=== PATIENT | male | born 1945 | race Caucasian/White ===

== ENCOUNTER 2017-03-15 09:51 | Emergency (ER) | payer MEDICARE, SELFPAY | END 2017-03-15 12:08 | disposition short-term general hospital (02) | PROVIDERS: Emergency Provider Emergency Medicine; Family Provider Family Medicine; PCP Family Medicine; Visit Provider Emergency Medicine | DX: S01.01XA Laceration without foreign body of scalp, initial encounter (principal); S12.001A Unspecified nondisplaced fracture of first cervical vertebra, initial encounter for closed fracture; W01.198A Fall on same level from slipping, tripping and stumbling with subsequent striking against other object, initial encounter; Y92.019 Unspecified place in single-family (private) house as the place of occurrence of the external cause; I25.10 Atherosclerotic heart disease of native coronary artery without angina pectoris; Z79.01 Long term (current) use of anticoagulants; I10 Essential (primary) hypertension; Z79.82 Long term (current) use of aspirin; E78.5 Hyperlipidemia, unspecified; K21.9 Gastro-esophageal reflux disease without esophagitis | CPT/HCPCS: 12002; 70450; 72125 ==

== ENCOUNTER 2019-12-29 19:13 | Emergency (ER) | payer MEDICARE, SELFPAY ==
[2019-12-29] VITALS (7 sets, daily range): BP systolic 91–116; BP diastolic 51–68; PULSE 63–72; RESP 16–20; TEMP 36.4; O2SAT 93–96; BMI 32.8
--- NOTE | 2019-12-29 19:42 | XR_ITS ---
PROCEDURE: XR CHEST 2V CLINICAL HISTORY: dizzy and weakness COMPARISON: CT CTAC CTA-CHEST from 11/27/2016 CR CXR CHEST(2 VIEWS-NOT PORTABLE) from 11/27/2016 CR CXR1 CHEST-PORTABLE from 12/04/2016 CR CXR1VP XR chest portable from 08/03/2017 FINDINGS: Cardiomegaly without failure. The lungs are clear without infiltrates, suspicious nodules, or pleural effusions. Mild subpleural thickening in the left chest laterally not significantly changed. No acute bony findings. IMPRESSION: Cardiomegaly. No acute finding Dictated by: Lino Stevenson MD 12/30/2019 05:49 Lino Stevenson MD in [place] 12/30/2019 05:49
--- NOTE | 2019-12-29 19:47 | ECG_ITS ---
APPROVED REPORT Exam: Resting ECG HR:70 bpm ECG Measurements Heart Rate 70 AXES [place] 168 P 73 QRSd 70 QRS 0 QT 412 T 129 QTc 444 Conclusion Normal sinus rhythm T wave abnormality, consider lateral ischemia Abnormal ECG Electronically signed by : Diego Griffin, 01/01/2020 09:43:39
[2019-12-29 19:49] LABS: Basophils # 0.1 K/mm3 (0-0.2); Basophils % 0.8 % (0.1-2.0); Eosinophils # 0.4 K/mm3 (0.0-0.4); Eosinophils % 3.3 % (0.1-12.0); Hematocrit 43.2 % (42.0-52.0); Hemoglobin 14.4 g/dL (14.1-18.0); Lymphocytes # 2.7 K/mm3 (0.7-4.5); Lymphocytes % 21.6 % (10-50); Mean Corpuscular HGB Conc 33.3 g/dL (31.8-35.4); Mean Corpuscular Hemoglobin 30.8 pg (27.0-31.2); Mean Corpuscular Volume 92.5 fl (80-94); Monocytes # 1.4 K/mm3 (0.1-1.0); Monocytes % 11.2 % (1.7-9.3); Neutrophils % 63.1 % (37.0-80.0); Platelet Count 259 K/mm3 (142-424); Red Blood Count 4.67 M/mm3 (4.60-6.20); Red Cell Distribution Width 17.4 % (11.5-17.5); White Blood Count 12.7 K/mm3 (4.8-10.8)
[2019-12-29 19:51] LABS: Chloride 102 mmol/L (98-107); Sodium 138 mmol/L (136-145)
[2019-12-29 19:52] LABS: Potassium 3.7 mmoL/L (3.5-5.1)
[2019-12-29 19:54] LABS: Alanine Aminotransferase 32 U/L (12-78); Albumin Level 4.2 g/dl (3.5-5.0); Alkaline Phosphatase 96 U/L (38-126); Anion Gap 16.7 mEq/L (5-15); Aspartate Amino Transferase 38 U/L (17-59); Bilirubin,Direct 0.1 mg/dl (0.0-0.4); Bilirubin,Indirect 0.5 mg/dL (0.0-0.9); Bilirubin,Total 0.6 mg/dl (0.2-1.3); Bilirubin,Unconjugated 0.5 mg/dL (0.0-1.1); Blood Urea Nitrogen 25 mg/dl (9-20); Carbon Dioxide 23 mmol/L (22.0-30.0); Creatinine Clearance Estimated 37 mL/min (50-200); Estimated Glomerular Filt Rate 27 ml/min (>60); GFR (African American) 32 ML/MIN (>60); Total Protein,Serum 7.4 g/dl (6.3-8.2)
[2019-12-29 19:55] LABS: Calcium 9.1 mg/dl (8.4-10.2); Glucose 100 mg/dl (74-100)
[2019-12-29 20:00] LABS: C-Reactive Protein 5.2 mg/L (0-4)
[2019-12-29 20:08] LABS: Troponin I 0.15 ng/ml (0.00-0.034)
[2019-12-29 20:15] LABS: Coronavirus 19 IgG Antibody Negative (Negative); Coronavirus 19 IgM Antibody Negative (Negative)
[2019-12-29 20:17] LABS: Erythrocyte Sedimentation Rate 20 mm/hr (0-20)
--- NOTE | 2019-12-29 20:38 | HMH.EDDIZZ ---
ED Disposition Clinical Impression: Lightheadedness, RENETTA (acute kidney injury), Elevated troponin, Obesity (BMI 30.0-34.9) Disposition: Xfer Short-Term Hosp Condition on Discharge: Good Referrals: Diego Lange MD [Primary Care Provider] - - Critical Care Critical Care Time: No Attestation: On 12/29/19, the high probability of a clinically significant, sudden or life threatening deterioration of the following system(s) required my full and direct attention, intervention and personal management. The time I documented below is in addition to time spent performing reported procedures but includes the following listed in this critical care notation. Medical Decision Making - Medical Records Medical records reviewed: Yes: I reviewed the patient's medical records. - Aguilar Inquiry Pt receiving controlled substance: No Vital Signs: 12/29/19 19:31 12/29/19 20:20 12/29/19 20:36 Temperature 97.6 F Temperature Source Oral Pulse Rate [Right] 72 63 71 Respiratory Rate 16 20 18 Blood Pressure [Right Arm] 91/51 L 116/63 99/53 L Blood Pressure Mean [Right Arm] 64 80 68 Blood Pressure Source [Right Arm] Automatic Cuff Blood Pressure Position [Right Arm] Sitting 02 Sat by Pulse Oximetry 96 94 L 94 L Oxygen Delivery Method Room Air Room Air Room Air 12/29/19 21:55 12/29/19 22:00 Temperature Temperature Source Pulse Rate [Right] 70 65 Respiratory Rate 18 Blood Pressure [Right Arm] 94/53 L 105/63 L Blood Pressure Mean [Right Arm] 66 77 Blood Pressure Source [Right Arm] Blood Pressure Position [Right Arm] 02 Sat by Pulse Oximetry 93 L 95 Oxygen Delivery Method Room Air Room Air - Lab Data Lab results reviewed: Yes: I reviewed the patient's lab results. Lab Results 12/29/19 19:35: WBC 12.7 H, RBC 4.67, Hgb 14.4, Hct 43.2, MCV 92.5, MCH 30.8, MCHC 33.3, RDW 17.4, Plt Count 259, MPV 8.0, Neut % (Auto) 63.1, Lymph % (Auto) 21.6, [place] % (Auto) 11.2 H, Eos % (Auto) 3.3, Baso % (Auto) 0.8, Neut # (Auto) 8.0 H, Lymph # (Auto) 2.7, [place] # (Auto) 1.4 H, Eos # (Auto) 0.4, Baso # (Auto) 0.1, ESR 20 12/29/19 19:35: Sodium 138, Potassium 3.7, Chloride 102, Carbon Dioxide 23, Anion Gap 16.7 H, BUN 25 H, Creatinine 2.40 H, Estimated Creat Clear 37, Estimated GFR 27 L, Est GFR ( Amer) 32 L, Glucose 100, Calcium 9.1, Total Bilirubin 0.6, Direct Bilirubin 0.1, Conjugated Bilirubin 0.0, Indirect Bilirubin 0.5, Unconjugated Bilirubin 0.5, AST 38, ALT 32, Alkaline Phosphatase 96, Troponin I 0.15 H, C-Reactive Protein 5.2 H, Total Protein 7.4, Albumin 4.2 12/29/19 19:35: SARS-CoV-2 IgG Ab (Rapid) Negative, SARS-CoV-2 IgM Ab (Rapid) Negative Result diagrams: 12/29/19 19:35 12/29/19 19:35 Orders (Tests/Meds): ED MEDICATIONS Generic Name Dose Route Start Last Admin Trade Name Freq PRN Reason Stop Dose Admin Sodium Chloride 1,000 mls @ 999 mls/hr 12/29/19 19:45 12/29/19 19:49 Sod Chlor 0.9% 1000ml Bag IV 12/29/19 20:45 999 mls/hr .Q1H1M JUICE Administration Sodium Chloride 8 ml 12/29/19 19:42 Sodium Chloride 0.9% 10ml Vial IV 01/28/20 19:41 NEEDED PRN dilute pepcid Discontinued Medications Generic Name Dose Route Start Last Admin Trade Name Freq PRN Reason Stop Dose Admin Famotidine 20 mg 12/29/19 19:42 12/29/19 19:49 Famotidine 20mg/2ml Vial IV 12/29/19 19:43 20 mg ONCE ONE Administration Metoclopramide HCl 10 mg 12/29/19 19:42 12/29/19 19:49 Metoclopramide Hcl 10mg/2ml Vial IVP 12/29/19 19:43 10 mg ONCE ONE Administration Ondansetron HCl 4 mg 12/29/19 19:42 12/29/19 19:49 Ondansetron 4mg/2ml Vial IV 12/29/19 19:43 4 mg ONCE ONE Administration ORDERS Category Date Time Status XR chest 2V Stat Exams 12/29/19 19:42 Taken Troponin I Q3H Lab 12/29/19 22:45 Ordered Troponin I Q3H Lab 12/30/19 01:45 Ordered - Radiology Data #1 Image(s): Chest Image Reviewed: Yes I reviewed the patient's radiology image Preliminary Find
--- NOTE | 2019-12-29 20:57 | PC.NURSE ---
Speaking with [place] transfer center
--- NOTE | 2019-12-29 21:31 | PC.NURSE ---
Spoke with nba at the CT who stated it would be a half hour before they knew if they had a bed available and they would call us back then to update.
--- NOTE | 2019-12-29 22:01 | PC.NURSE ---
[facility] calling to [facility] Neal
--- NOTE | 2019-12-29 22:01 | PC.NURSE ---
speaking with [facility]
--- NOTE | 2019-12-29 22:15 | PC.NURSE ---
[facility] by [facility] Palmer
== END 2019-12-29 23:58 | disposition short-term general hospital (02) ==
PROVIDERS: Emergency Medicine; Emergency Provider Emergency Medicine; PCP Family Medicine
DX: N17.9 Acute kidney failure, unspecified (principal); R77.8 Other specified abnormalities of plasma proteins; Z01.84 Encounter for antibody response examination; I95.9 Hypotension, unspecified; E66.9 Obesity, unspecified; Z68.30 Body mass index [BMI] 30.0-30.9, adult; Z79.899 Other long term (current) drug therapy; Z20.828 Contact with and (suspected) exposure to other viral communicable diseases
CPT/HCPCS: 71046; 80048; 80076; 84484; 85025; 85651; 86140; 86328; 93005; 96365; 96375; 99284; J2405

== ENCOUNTER 2020-08-09 13:27 | Emergency (ER) | payer MEDICARE, SELFPAY ==
[2020-08-09] VITALS (10 sets, daily range): BP systolic 94–150; BP diastolic 42–66; PULSE 95–107; RESP 16–22; TEMP 36.6–36.7; O2SAT 94–98; BMI 38.0
--- NOTE | 2020-08-09 13:31 | ECG_ITS ---
APPROVED REPORT Exam: Resting ECG HR:105 bpm ECG Measurements Heart Rate 105 AXES [place] 164 P 72 QRSd 72 QRS 16 QT 322 T 66 QTc 425 Conclusion Sinus tachycardia Otherwise normal ECG Electronically signed by : Diego Griffin, 08/11/2020 07:29:23
--- NOTE | 2020-08-09 13:35 | HMH.EDGENADL ---
ED Disposition Clinical Impression: Chest pain Qualifiers: Chest pain type: unspecified Qualified Code(s): R07.9 - Chest pain, unspecified Disposition: Xfer Short-Term Hosp Condition on Discharge: Good Referrals: Diego Lange MD [Primary Care Provider] - Forms: Transfer Record - ED - Critical Care Critical Care Time: No Attestation: On 08/09/20, the high probability of a clinically significant, sudden or life threatening deterioration of the following system(s) required my full and direct attention, intervention and personal management. The time I documented below is in addition to time spent performing reported procedures but includes the following listed in this critical care notation. Medical Decision Making - Aguilar Inquiry Pt receiving controlled substance: No Vital Signs: 08/09/20 13:28 08/09/20 14:01 08/09/20 14:33 Temperature 98.0 F Temperature Source Oral Pulse Rate 102 H 96 H Pulse Rate [Right Radial] 107 H Respiratory Rate 22 21 16 Blood Pressure 106/57 L 128/42 L Blood Pressure [Right Arm] 150/66 H Blood Pressure Mean 73 75 Blood Pressure Mean [Right Arm] 94 02 Sat by Pulse Oximetry 98 94 L 95 Oxygen Delivery Method Room Air 08/09/20 15:29 08/09/20 16:00 08/09/20 16:30 Temperature Temperature Source Pulse Rate 98 H 100 H 100 H Pulse Rate [Right Radial] Respiratory Rate 21 18 18 Blood Pressure 113/64 100/43 L 94/59 L Blood Pressure [Right Arm] Blood Pressure Mean 69 65 72 Blood Pressure Mean [Right Arm] 02 Sat by Pulse Oximetry 94 L 95 96 Oxygen Delivery Method 08/09/20 17:00 08/09/20 17:30 08/09/20 18:01 Temperature Temperature Source Pulse Rate 95 H 97 H 96 H Pulse Rate [Right Radial] Respiratory Rate 21 19 21 Blood Pressure 100/64 L 113/64 97/61 L Blood Pressure [Right Arm] Blood Pressure Mean 68 79 73 Blood Pressure Mean [Right Arm] 02 Sat by Pulse Oximetry 96 98 94 L Oxygen Delivery Method 08/09/20 19:04 Temperature 98 F Temperature Source Pulse Rate 96 H Pulse Rate [Right Radial] Respiratory Rate 20 Blood Pressure 97/61 L Blood Pressure [Right Arm] Blood Pressure Mean Blood Pressure Mean [Right Arm] 02 Sat by Pulse Oximetry Oxygen Delivery Method Room Air - Lab Data Lab Results 08/09/20 13:47: WBC 11.2 H, RBC 4.30 L, Hgb 14.0 L, Hct 41.8 L, MCV 97.1 H, MCH 32.5 H, MCHC 33.4, RDW 15.9, Plt Count 266, MPV 7.5, Neut % (Auto) 83.7 H, Lymph % (Auto) 12.1, [place] % (Auto) 3.4, Eos % (Auto) 0.5, Baso % (Auto) 0.3, Neut # (Auto) 9.4 H, Lymph # (Auto) 1.4, [place] # (Auto) 0.4, Eos # (Auto) 0.1, Baso # (Auto) 0.0 08/09/20 13:47: Sodium 136, Potassium 4.9, Chloride 107, Carbon Dioxide 18 L, Anion Gap 15.9 H, BUN 33 H, Creatinine 1.40 H, Estimated Creat Clear 75, Estimated GFR 50 L, Est GFR ( Amer) 60, Glucose 176 H, Calcium 9.0, Total Bilirubin 0.7, AST 41, ALT 47, Alkaline Phosphatase 74, Troponin I 0.01, Total Protein 7.2, Albumin 4.3, Globulin 2.9, Albumin/Globulin Ratio 1.5 08/09/20 16:26: Troponin I 0.03 Result diagrams: 08/09/20 13:47 08/09/20 13:47 Orders (Tests/Meds): ED MEDICATIONS Discontinued Medications Generic Name Dose Route Start Last Admin Trade Name Freq PRN Reason Stop Dose Admin Aspirin 324 mg 08/09/20 13:53 08/09/20 14:00 Aspirin 81mg Chewable Tablet PO 08/09/20 13:54 324 mg ONCE ONE Administration Belladonna Alkaloids 60 ml 08/09/20 13:54 08/09/20 14:00 Gi Cocktail 60ml Udc PO 08/09/20 13:55 60 ml ONCE ONE Administration Famotidine 20 mg 08/09/20 13:53 08/09/20 14:00 Famotidine 20mg/2ml Vial IV 08/09/20 13:54 20 mg ONCE ONE Administration Sodium Chloride 8 ml 08/09/20 13:53 Sodium Chloride 0.9% 10ml Vial IV 09/08/20 13:52 NEEDED PRN dilute pepcid - ECG Data Tracing #1 EKG interpreted by Shane Lopez MD: Rhythm: sinus tachycardia Rate: 105 [place]: normal Ectopy: none Conduction: normal ST Segm
--- NOTE | 2020-08-09 13:53 | XR_ITS ---
PROCEDURE: XR CHEST PORTABLE CLINICAL HISTORY: chest pain COMPARISON: CT CTAC CTA-CHEST from 11/27/2016 CR CXR1 CHEST-PORTABLE from 12/04/2016 CR CXR1VP XR chest portable from 08/03/2017 CR XR CHEST 2V from 12/29/2019 FINDINGS: Low lung volumes with vascular crowding and pericardial fat pads noted in the lung bases. No lobar consolidation or collapse apparent with no significant change. The lungs are clear without infiltrates, suspicious nodules, or pleural effusions. No acute bony abnormalities. IMPRESSION: No acute findings. Dictated by: Lino Stevenson MD 08/09/2020 14:51 Lino Stevenson MD in [place] 08/09/2020 14:51
[2020-08-09 14:01] LABS: Basophils % 0.3 % (0.1-2.0); Eosinophils # 0.1 K/mm3 (0.0-0.4); Eosinophils % 0.5 % (0.1-12.0); Hematocrit 41.8 % (42.0-52.0); Lymphocytes # 1.4 K/mm3 (0.7-4.5); Lymphocytes % 12.1 % (10-50); Mean Corpuscular HGB Conc 33.4 g/dL (31.8-35.4); Mean Corpuscular Hemoglobin 32.5 pg (27.0-31.2); Mean Corpuscular Volume 97.1 fl (80-94); Mean Platelet Volume 7.5 fl (7.4-10.4); Monocytes # 0.4 K/mm3 (0.1-1.0); Monocytes % 3.4 % (1.7-9.3); Neutrophils # 9.4 K/mm3 (1.8-7.8); Neutrophils % 83.7 % (37.0-80.0); Platelet Count 266 K/mm3 (142-424); Red Cell Distribution Width 15.9 % (11.5-17.5); White Blood Count 11.2 K/mm3 (4.8-10.8)
--- NOTE | 2020-08-09 14:01 | PC.NURSE ---
Rad at bedside.
[2020-08-09 14:05] LABS: Chloride 107 mmol/L (98-107); Potassium 4.9 mmoL/L (3.5-5.1); Sodium 136 mmol/L (136-145)
[2020-08-09 14:07] LABS: Alanine Aminotransferase 47 U/L (12-78); Alkaline Phosphatase 74 U/L (38-126); Anion Gap 15.9 mEq/L (5-15); Aspartate Amino Transferase 41 U/L (17-59); Bilirubin,Total 0.7 mg/dl (0.2-1.3); Blood Urea Nitrogen 33 mg/dl (9-20); Carbon Dioxide 18 mmol/L (22.0-30.0); Creatinine Clearance Estimated 75 mL/min (50-200); Estimated Glomerular Filt Rate 50 ml/min (>60); GFR (African American) 60 ML/MIN (>60)
[2020-08-09 14:08] LABS: Albumin Level 4.3 g/dl (3.5-5.0); Albumin/Globulin Ratio 1.5 (1.1-1.8); Globulin 2.9 g/dL (1.3-3.2); Glucose 176 mg/dl (74-100); Total Protein,Serum 7.2 g/dl (6.3-8.2)
[2020-08-09 14:22] LABS: Troponin I 0.01 ng/ml (0.00-0.034)
--- NOTE | 2020-08-09 16:27 | PC.NURSE ---
repeat troponin done at this time
[2020-08-09 17:03] LABS: Troponin I 0.03 ng/ml (0.00-0.034)
--- NOTE | 2020-08-09 17:15 | PC.NURSE ---
[facility] facer per MD request.
--- NOTE | 2020-08-09 17:22 | PC.NURSE ---
[facility] is [facility] once they get ahold of cardiology. They did advise their cardiology can't transfer in, but would be willing to do a conference. Our MD would then need to conference with their MD to see about admission. I advised them we just want to talk to someone in cardiology first as pt is [facility] pt and request transfer to the [place].
--- NOTE | 2020-08-09 17:28 | PC.NURSE ---
DAXA CORTEZ speaking with Dr Patsy MD with [facility] at [place].
--- NOTE | 2020-08-09 18:23 | PC.NURSE ---
Paola notified of transfer to [place]. Another patient also to transfer to , called supervisor inspection room and she stated to go on and [facility].
--- NOTE | 2020-08-09 18:50 | PC.NURSE ---
Pt care turned over to EMS at this time.
== END 2020-08-09 19:06 | disposition short-term general hospital (02) ==
PROVIDERS: Emergency Provider Emergency Medicine; PCP Family Medicine
DX: R07.9 Chest pain, unspecified (principal); I25.2 Old myocardial infarction; E78.5 Hyperlipidemia, unspecified; I10 Essential (primary) hypertension; Z79.899 Other long term (current) drug therapy; Z87.891 Personal history of nicotine dependence
CPT/HCPCS: 71045; 80053; 84484; 85025; 93005; 96374; 99283

== ENCOUNTER 2020-08-22 15:11 | Emergency (ER) | payer MEDICARE, SELFPAY ==
[2020-08-22] VITALS (13 sets, daily range): BP systolic 90–144; BP diastolic 46–84; PULSE 72–105; RESP 12–22; TEMP 36.6–36.8; O2SAT 93–98; BMI 31.9
--- NOTE | 2020-08-22 15:06 | ECG_ITS ---
APPROVED REPORT Exam: Resting ECG HR:94 bpm ECG Measurements Heart Rate 94 AXES [place] 166 P 72 QRSd 82 QRS 16 QT 362 T 91 QTc 452 Conclusion Normal sinus rhythm Nonspecific ST and T wave abnormality Abnormal ECG Electronically signed by : Diego Griffin, 08/25/2020 11:05:26
--- NOTE | 2020-08-22 15:20 | XR_ITS ---
PROCEDURE: XR CHEST PORTABLE CLINICAL HISTORY: chest pain COMPARISON: CT CTAC CTA-CHEST from 11/27/2016 CR CXR1VP XR chest portable from 08/03/2017 CR XR CHEST 2V from 12/29/2019 CR XR CHEST PORTABLE from 08/09/2020 FINDINGS: Mild cardiomegaly without failure The lung bases are under penetrated with increased density in both lung bases which may be due soft tissue attenuation. Upper lobes are clear. No acute bony abnormalities. IMPRESSION: No acute findings. Dictated by: Lino Stevenson MD 08/22/2020 16:55 Lino Stevenson MD in [place] 08/22/2020 16:55
--- NOTE | 2020-08-22 15:21 | HMH.EDGENADL ---
ED Disposition Clinical Impression: Angina pectoris Leukocytosis Qualifiers: Leukocytosis type: unspecified Qualified Code(s): D72.829 - Elevated white blood cell count, unspecified Disposition: Home Health Service Condition on Discharge: Good Referrals: Diego Lange MD [Primary Care Provider] - Forms: Transfer Record - ED - Critical Care Critical Care Time: No Attestation: On , the high probability of a clinically significant, sudden or life threatening deterioration of the following system(s) required my full and direct attention, intervention and personal management. The time I documented below is in addition to time spent performing reported procedures but includes the following listed in this critical care notation. Medical Decision Making - Medical Records Medical records reviewed: Yes: I reviewed the patient's medical records. MR Comment: Reviewed ER record from 08/09/2020. Seen by me in this emergency department for similar burning in his chest that started after he had a nasopharyngeal scope procedure at the [facility]. His troponin increased from 0.01-0.03 in the emergency department and he was transferred to the [facility]. - Aguilar Inquiry Pt receiving controlled substance: No Vital Signs: 08/22/20 15:11 08/22/20 15:35 Temperature 98 F Temperature Source Oral Pulse Rate 95 H Pulse Rate [Radial] 94 H Respiratory Rate 20 18 Blood Pressure 90/46 L Blood Pressure [Right Arm] 144/60 H Blood Pressure Mean [Right Arm] 88 Blood Pressure Source [Right Arm] Manual Cuff/ Palpation Blood Pressure Position Sitting Blood Pressure Position [Right Arm] Sitting 02 Sat by Pulse Oximetry 98 98 Oxygen Delivery Method Room Air Room Air - Lab Data Lab Results 08/22/20 15:19: WBC 20.9 H*, RBC 4.22 L, Hgb 13.8 L, Hct 40.7 L, MCV 96.3 H, MCH 32.7 H, MCHC 34.0, RDW 16.3, Plt Count 230, MPV 8.4, Neut % (Auto) 89.5 H, Lymph % (Auto) 6.1 L, [place] % (Auto) 4.0, Eos % (Auto) 0.0 L, Baso % (Auto) 0.4, Neut # (Auto) 18.7 H, Lymph # (Auto) 1.3, [place] # (Auto) 0.8, Eos # (Auto) 0.0, Baso # (Auto) 0.1, Total Counted 100, Neutrophils % (Manual) 85 H, Band Neutrophils % 1.0, Lymphocytes % (Manual) 13, Monocytes % (Manual) 1 L, Platelet Estimate Normal, RBC Morphology Normal, Anisocytosis 1+ 08/22/20 15:19: Sodium 130 L, Potassium 4.2, Chloride 99, Carbon Dioxide 22, Anion Gap 13.2, BUN 43 H, Creatinine 1.20, Estimated Creat Clear 72, Estimated GFR 59, Est GFR ( Amer) 72, Glucose 176 H, Calcium 8.5, Troponin I 0.03 08/22/20 16:02: Lactate 1.8 Result diagrams: 08/22/20 15:19 08/22/20 15:19 Orders (Tests/Meds): ED MEDICATIONS Discontinued Medications Generic Name Dose Route Start Last Admin Trade Name Freq PRN Reason Stop Dose Admin Aspirin 324 mg 08/22/20 15:24 08/22/20 15:26 Aspirin 81mg Chewable Tablet PO 08/22/20 15:25 324 mg ONCE ONE Administration Nitroglycerin 0.4 mg 08/22/20 15:25 08/22/20 15:24 Nitroglycerin 0.4mg Sl Tablet SL 08/22/20 15:26 0.4 mg ONCE ONE Administration ORDERS Category Date Time Status Full Resp Panel w/COVID ([facility]) Routine Lab 08/22/20 16:45 Received Troponin I Q3H Lab 08/22/20 18:30 Ordered Troponin I Q3H Lab 08/22/20 21:30 Ordered Urinalysis and Microscopic Stat Lab 08/22/20 16:00 Ordered Blood Culture Stat Micro 08/22/20 15:40 Received - Radiology Data #1 Image(s): Chest Image Reviewed: Yes I reviewed the patient's radiology image, Yes I have reviewed radiologist's interpretation Preliminary Findings: Normal/NAD PROCEDURE: XR CHEST PORTABLE CLINICAL HISTORY: chest pain COMPARISON: CT CTAC CTA-CHEST from 11/27/2016 CR CXR1VP XR chest portable from 08/03/2017 CR XR CHEST 2V from 12/29/2019 CR XR CHEST PORTABLE from 08/09/2020 FINDINGS: Mild cardiomegaly without failure The lung bases are under penetrated with increased density in both lung bases which may be due soft tissue attenuation. Upper l
[2020-08-22 15:31] LABS: Basophils # 0.1 K/mm3 (0-0.2); Basophils % 0.4 % (0.1-2.0); Hematocrit 40.7 % (42.0-52.0); Hemoglobin 13.8 g/dL (14.1-18.0); Lymphocytes # 1.3 K/mm3 (0.7-4.5); Lymphocytes % 6.1 % (10-50); Mean Corpuscular Hemoglobin 32.7 pg (27.0-31.2); Mean Corpuscular Volume 96.3 fl (80-94); Mean Platelet Volume 8.4 fl (7.4-10.4); Monocytes # 0.8 K/mm3 (0.1-1.0); Neutrophils # 18.7 K/mm3 (1.8-7.8); Neutrophils % 89.5 % (37.0-80.0); Platelet Count 230 K/mm3 (142-424); Red Blood Count 4.22 M/mm3 (4.60-6.20); Red Cell Distribution Width 16.3 % (11.5-17.5); White Blood Count 20.9 K/mm3 (4.8-10.8)
[2020-08-22 15:35] LABS: MANUAL DIFFERENTIAL MANUAL DIFFERENTIAL (MANUAL DIFF)
[2020-08-22 15:43] LABS: Anion Gap 13.2 mEq/L (5-15); Blood Urea Nitrogen 43 mg/dl (9-20); Calcium 8.5 mg/dl (8.4-10.2); Carbon Dioxide 22 mmol/L (22.0-30.0); Chloride 99 mmol/L (98-107); Creatinine Clearance Estimated 72 mL/min (50-200); Estimated Glomerular Filt Rate 59 ml/min (>60); GFR (African American) 72 ML/MIN (>60); Glucose 176 mg/dl (74-100); Potassium 4.2 mmoL/L (3.5-5.1); Sodium 130 mmol/L (136-145)
[2020-08-22 15:55] LABS: Troponin I 0.03 ng/ml (0.00-0.034)
[2020-08-22 16:01] LABS: Anisocytosis 1+; Lymphocytes % 13 % (10-50); Monocytes % 1 % (2-9); Neutrophils % 85 % (42-76); Platelet Estimate Normal; RBC Morphology Normal; Total Cells Counted 100
--- NOTE | 2020-08-22 16:06 | PC.NURSE ---
Unable to collect urine at this time, pt states he can urinate at this time
--- NOTE | 2020-08-22 16:19 | PC.NURSE ---
placed call to [facility] JIANG there advises she will call back after speaking with hospitalist and checking room availability
[2020-08-22 16:22] LABS: Lactic Acid 1.8 mmol/L (0.7-2.1)
--- NOTE | 2020-08-22 16:48 | PC.NURSE ---
Dr Lopez spoke with the [place].
[2020-08-22 16:54] LABS: Adenovirus,PCR Not Detected (NotDetected); Bordetella Pertussis Not Detected (NotDetected); Chlamydophila Pneumoniae, PCR Not Detected (NotDetected); Coronavirus 19, PCR Not Detected (NotDetected); Coronavirus 229E Not Detected (NotDetected); Coronavirus NL63 Not Detected (NotDetected); Coronavirus OC43 Not Detected (NotDetected); Coronovirus HKU1,PCR Not Detected (NotDetected); Human Metapneumovirus Not Detected (NotDetected); Influenza A, PCR Not Detected (NotDetected); Influenza AH1, 2009 Not Detected (NotDetected); Influenza AH1, PCR Not Detected (NotDetected); Influenza AH3,PCR Not Detected (NotDetected); Influenza B, PCR Not Detected (NotDetected); Mycoplasma Pneumoniae, PCR Not Detected (NotDetected); Parainfluenza 1, PCR Not Detected (NotDetected); Parainfluenza 2, PCR Not Detected (NotDetected); Parainfluenza 3, PCR Not Detected (NotDetected); Parainfluenza 4, PCR Not Detected (NotDetected); Respiratory Syncytial Virus Not Detected (NotDetected); Rhinovirus/Enterovirus Not Detected (NotDetected)
--- NOTE | 2020-08-22 19:04 | PC.WOUNDNOTE ---
PT AND FAMILY UPDATED ON PLAN OF CARE
[2020-08-22 19:08] LABS: Troponin I 0.03 ng/ml (0.00-0.034)
--- NOTE | 2020-08-22 21:37 | PC.NURSE ---
Pt requesting to wash up given cleaning supplies and wash rags
--- NOTE | 2020-08-22 22:42 | PC.NURSE ---
[facility] at [facility] RN requested to have this RN call back in 10 min.
== END 2020-08-22 22:53 | disposition short-term general hospital (02) ==
PROVIDERS: Emergency Provider Emergency Medicine; PCP Family Medicine
DX: I20.8 Other forms of angina pectoris (principal); D72.829 Elevated white blood cell count, unspecified
CPT/HCPCS: 71045; 80048; 83605; 84484; 85007; 85025; 87040; 87581; 87633; 87798; 93005; 99284

== ENCOUNTER 2020-09-11 04:11 | Emergency (ER) | payer MEDICARE, SELFPAY ==
[2020-09-11 04:17] VITALS: BP 154/119; PULSE 82; RESP 16; TEMP 36.6; O2SAT 96; BMI 39.5
--- NOTE | 2020-09-11 04:17 | ECG_ITS ---
APPROVED REPORT Exam: Resting ECG HR:71 bpm ECG Measurements Heart Rate 71 AXES [place] 168 P 74 QRSd 70 QRS 20 QT 438 T 75 QTc 475 Conclusion Normal sinus rhythm Normal ECG Electronically signed by : Diego Griffin, 09/11/2020 21:17:52
--- NOTE | 2020-09-11 04:24 | XR_ITS ---
PROCEDURE INFORMATION: Exam: XR Chest Exam date and time: 09/11/2020 4:24 AM Age: 75 years old Clinical indication: Shortness of breath; Patient HX: Short of breath; Additional info: SOA TECHNIQUE: Imaging protocol: XR of the chest. Views: 1 view. COMPARISON: CR XR CHEST PORTABLE 08/22/2020 3:46 PM FINDINGS: Lungs: See Heart/Mediastinum finding. Pleural spaces: There is no pleural effusion or pneumothorax. Heart/Mediastinum: The moderate cardiomegaly and mild perihilar infiltrates are stable since the prior exam. Bones/joints: The bones are demineralized but grossly intact. IMPRESSION: No significant change in the moderate cardiomegaly or mild perihilar infiltrates.
[2020-09-11 04:32] LABS: Basophils # 0.1 K/mm3 (0-0.2); Basophils % 0.7 % (0.1-2.0); Eosinophils # 0.2 K/mm3 (0.0-0.4); Eosinophils % 2.3 % (0.1-12.0); Hematocrit 34.5 % (42.0-52.0); Hemoglobin 11.3 g/dL (14.1-18.0); Lymphocytes # 1.7 K/mm3 (0.7-4.5); Lymphocytes % 19.6 % (10-50); Mean Corpuscular HGB Conc 32.8 g/dL (31.8-35.4); Mean Corpuscular Hemoglobin 32.6 pg (27.0-31.2); Mean Corpuscular Volume 99.6 fl (80-94); Mean Platelet Volume 7.5 fl (7.4-10.4); Monocytes # 0.7 K/mm3 (0.1-1.0); Monocytes % 8.1 % (1.7-9.3); Neutrophils % 69.4 % (37.0-80.0); Platelet Count 340 K/mm3 (142-424); Red Blood Count 3.46 M/mm3 (4.60-6.20); Red Cell Distribution Width 17.5 % (11.5-17.5); White Blood Count 8.6 K/mm3 (4.8-10.8)
[2020-09-11 04:37] LABS: Anion Gap 11.5 mEq/L (5-15); Blood Urea Nitrogen 15 mg/dl (9-20); Carbon Dioxide 27 mmol/L (22.0-30.0); Chloride 103 mmol/L (98-107); Creatinine Clearance Estimated 100 mL/min (50-200); Potassium 3.5 mmoL/L (3.5-5.1); Sodium 138 mmol/L (136-145)
[2020-09-11 04:38] LABS: Calcium 8.4 mg/dl (8.4-10.2); Estimated Glomerular Filt Rate 66 ml/min (>60); GFR (African American) 79 ML/MIN (>60); Glucose 97 mg/dl (74-100)
[2020-09-11 04:50] LABS: NT Pro Brain Natriuretic Pep. 425 pg/mL (0-125)
--- NOTE | 2020-09-11 04:57 | PC.NURSE ---
swabbed for covid and sent to lab. son-in-law remains in room
[2020-09-11 05:00] LABS: Coronavirus 19, PCR Not Detected (NotDetected); Influenza A, PCR Not Detected (NotDetected); Influenza B, PCR Not Detected (NotDetected)
[2020-09-11 05:01] VITALS: BP 146/70; RESP 16
[2020-09-11 05:03] LABS: Troponin I < 0.01 ng/ml (0.00-0.034)
--- NOTE | 2020-09-11 05:20 | HMH.EDSOB ---
ED Disposition Clinical Impression: Acute exacerbation of chronic obstructive airways disease Disposition: Home, Self-Care Condition on Discharge: Good Instructions: DI for Shortness of Breath Additional Instructions: use meds and see pcp for follow up Referrals: Diego Lange MD [Primary Care Provider] - - Critical Care Critical Care Time: No Attestation: On 09/11/20, the high probability of a clinically significant, sudden or life threatening deterioration of the following system(s) required my full and direct attention, intervention and personal management. The time I documented below is in addition to time spent performing reported procedures but includes the following listed in this critical care notation. Medical Decision Making - Medical Records Medical records reviewed: Yes: I reviewed the patient's medical records. - Aguilar Inquiry Pt receiving controlled substance: No Vital Signs: 09/11/20 04:17 09/11/20 05:01 Temperature 97.8 F Temperature Source Oral Pulse Rate [Right Brachial] 82 Respiratory Rate 16 16 Blood Pressure 146/70 H Blood Pressure [Right Arm] 154/119 H Blood Pressure Mean 95 Blood Pressure Mean [Right Arm] 130 Blood Pressure Source [Right Arm] Automatic Cuff Blood Pressure Position [Right Arm] Sitting 02 Sat by Pulse Oximetry 96 Oxygen Delivery Method Room Air - Lab Data Lab results reviewed: Yes: I reviewed the patient's lab results. Lab Results 09/11/20 04:20: WBC 8.6, RBC 3.46 L, Hgb 11.3 L, Hct 34.5 L, MCV 99.6 H, MCH 32.6 H, MCHC 32.8, RDW 17.5, Plt Count 340, MPV 7.5, Neut % (Auto) 69.4, Lymph % (Auto) 19.6, [place] % (Auto) 8.1, Eos % (Auto) 2.3, Baso % (Auto) 0.7, Neut # (Auto) 6.0, Lymph # (Auto) 1.7, [place] # (Auto) 0.7, Eos # (Auto) 0.2, Baso # (Auto) 0.1 09/11/20 04:20: Sodium 138, Potassium 3.5, Chloride 103, Carbon Dioxide 27, Anion Gap 11.5, BUN 15, Creatinine 1.10, Estimated Creat Clear 100, Estimated GFR 66, Est GFR ( Amer) 79, Glucose 97, Calcium 8.4, Troponin I < 0.01, NT-Pro-B Natriuret Pep 425 H 09/11/20 04:20: Total Bilirubin 0.8, Direct Bilirubin 0.4, Conjugated Bilirubin 0.0, Indirect Bilirubin 0.4, Unconjugated Bilirubin 0.4, AST 34, ALT 29, Alkaline Phosphatase 68, Total Protein 5.9 L, Albumin 3.6 09/11/20 04:54: SARS-CoV-2 (PCR) Not detected, Influenza A Untype (PCR) Not detected, Influenza Type B (PCR) Not detected 09/11/20 05:12: Specimen Source Right radial, O2 % Room air, ABG pH 7.47 H, ABG pCO2 37.0, ABG pO2 67.9 L, ABG HCO3 26.4 H, ABG Total CO2 27.6 H, ABG O2 Saturation 94, ABG Base Excess 2.8 H, Lino Test Y 09/11/20 05:20: Lactate 1.0 Result diagrams: 09/11/20 04:20 09/11/20 04:20 Orders (Tests/Meds): ED MEDICATIONS Generic Name Dose Route Start Last Admin Trade Name Freq PRN Reason Stop Dose Admin Albuterol Sulfate 2 puffs 09/11/20 12:00 09/11/20 06:36 Albuterol-Hfa 90mcg/Puff Inhaler 8gm 10/11/20 11:59 2 puffs Q6RT JUICE Administration Discontinued Medications Generic Name Dose Route Start Last Admin Trade Name Freq PRN Reason Stop Dose Admin Albuterol Sulfate 2.5 mg 09/11/20 06:26 Albuterol 0.083% 2.5 Mg/3 Ml [facility] 10/11/20 06:25 Q6 PRN Shortness Of Breath Or Wheezing Albuterol/Ipratropium 3 ml 09/11/20 06:23 09/11/20 06:34 Ipratropium/Albuterol 3 Ml [facility] 09/11/20 06:24 3 ml ONCE ONE Administration Furosemide 40 mg 09/11/20 06:26 09/11/20 06:28 Furosemide 40mg/4ml Vial IV 09/11/20 06:27 40 mg ONCE ONE Administration Iopamidol 70 ml 09/11/20 05:59 09/11/20 06:00 Iopamidol-370 (76%);100ml Bottle IV 09/11/20 06:00 70 ml ONCE ONE Administration Methylprednisolone Sodium Succinate 125 mg 09/11/20 06:23 09/11/20 06:24 Methylprednisolone Sod Succ 125mg Vial IV 09/11/20 06:24 125 mg ONCE ONE Administration Miscellaneous 1 unit 09/11/20 06:34 09/11/20 06:36 Aerochamber/Optihaler MC 09/11/20 06:35 1 unit ONCE ONE Administration S
--- NOTE | 2020-09-11 05:23 | CT_ITS ---
PROCEDURE INFORMATION: Exam: CTA Chest With Contrast Exam date and time: 09/11/2020 5:23 AM Age: 75 years old Clinical indication: Shortness of breath and other: Chest tightness; Prior surgery; Surgery date: <1 month; Surgery type: Cardiac stents placed first of August 2020. PT has also had a RT endarterectomy in the past HX; Patient HX: SOB, congestion, chest tightness, HX of cardiac stents; Additional info: SOA, chest tightness TECHNIQUE: Imaging protocol: Computed tomographic angiography of the chest with contrast. 3D rendering (Not supervised by radiologist): MIP and/or 3D reconstructed images were created by the technologist. Radiation optimization: All CT scans at this facility use at least one of these dose optimization techniques: automated exposure control; mA and/or kV adjustment per patient size (includes targeted exams where dose is matched to clinical indication); or iterative reconstruction. Contrast material: ISOVUE 370; Contrast volume: 70 ml; Contrast route: INTRAVENOUS (IV); COMPARISON: [facility] CTA-CHEST 11/27/2016 10:28 AM FINDINGS: Pulmonary arteries: There is no convincing evidence of a significant pulmonary embolus. Aorta: There is no aortic aneurysm or dissection. Lungs: There is mild dependent atelectasis in both lungs. No lobar consolidation is seen. Pleural spaces: Unremarkable. No pneumothorax. No pleural effusion. Heart: There are prominent atherosclerotic calcifications within the coronary arteries. The cardiac chambers are grossly normal in size and there is no pericardial effusion or overt failure. Mediastinal space: There is mucous debris within the trachea and right mainstem bronchus. Lymph nodes: There are nonspecific mildly prominent lymph nodes in the mediastinum. There are a few calcified lymph nodes consistent with remote granulomatous disease. Liver: Mild hepatic steatosis. Bones/joints: No acute osseous abnormality Soft tissues: Unremarkable. IMPRESSION: 1. No convincing evidence of a pulmonary embolus. 2. Mild mediastinal lymphadenopathy of unknown etiology. 3. Prominent atherosclerotic calcifications within the coronary arteries. 4. Mild hepatic steatosis.
[2020-09-11 05:28] LABS: Alanine Aminotransferase 29 U/L (12-78); Albumin Level 3.6 g/dl (3.5-5.0); Alkaline Phosphatase 68 U/L (38-126); Aspartate Amino Transferase 34 U/L (17-59); Bilirubin,Direct 0.4 mg/dl (0.0-0.4); Bilirubin,Indirect 0.4 mg/dL (0.0-0.9); Bilirubin,Total 0.8 mg/dl (0.2-1.3); Bilirubin,Unconjugated 0.4 mg/dL (0.0-1.1); Total Protein,Serum 5.9 g/dl (6.3-8.2)
[2020-09-11 05:28] LABS: ABG Base Excess 2.8 mmol/L (-2.4-2.3); ABG HCO3 26.4 mmhg (22.0-26.0); ABG Oxygen Saturation 94 % (90-100); ABG PH 7.47 mmol/L (7.35-7.45); ABG PO2 67.9 mmhg (80-100); ABG TCO2 27.6 mmhg (23-27)
[2020-09-11 05:29] LABS: Oxygen Room Air %
[2020-09-11 05:30] LABS: Allen's Test Y; Source Right Radial
--- NOTE | 2020-09-11 05:46 | PC.NURSE ---
pt up to ct via [facility].
--- NOTE | 2020-09-11 06:08 | PC.NURSE ---
return from rad at this time
[2020-09-11 06:57] VITALS: BP 160/70; PULSE 69; RESP 18; TEMP 36.9; O2SAT 98
== END 2020-09-11 07:07 | disposition home or self-care (01) ==
PROVIDERS: Emergency Provider Emergency Medicine; PCP Family Medicine
DX: J44.1 Chronic obstructive pulmonary disease with (acute) exacerbation (principal); Z79.899 Other long term (current) drug therapy
CPT/HCPCS: 71045; 71275; 80048; 80076; 82803; 83605; 83880; 84484; 85025; 87040; 93005; 96374; 96375; 99283; Q9967; U0003

== ENCOUNTER 2020-10-05 15:54 | Emergency (ER) | payer OTHER, MEDICARE, SELFPAY ==
[2020-10-05 15:55] VITALS: BP 155/72; PULSE 85; RESP 22; TEMP 36.9; O2SAT 97; BMI 34.4
--- NOTE | 2020-10-05 16:01 | ECG_ITS ---
APPROVED REPORT Exam: Resting ECG HR:92 bpm ECG Measurements Heart Rate 92 AXES [place] 162 P 72 QRSd 74 QRS 20 QT 386 T 85 QTc 477 Conclusion Normal sinus rhythm Nonspecific ST and T wave abnormality Prolonged QT Abnormal ECG Electronically signed by : Diego Griffin, 10/06/2020 15:18:01
[2020-10-05 16:04] VITALS: BP 180/95; PULSE 87; RESP 18; O2SAT 98
--- NOTE | 2020-10-05 16:04 | XR_ITS ---
PROCEDURE INFORMATION: Exam: XR Chest Exam date and time: 10/05/2020 4:04 PM Age: 75 years old Clinical indication: Patient HX: Cough and SOA TECHNIQUE: Imaging protocol: XR of the chest. Views: 1 view. COMPARISON: CR XR CHEST PORTABLE 09/11/2020 4:28 AM FINDINGS: Lungs: Atelectatic and/or early infiltrative changes noted within both lung bases. Pleural spaces: There is no evidence of pneumothorax. There are no pleural effusions present. Heart/Mediastinum: The heart demonstrates moderate diffuse enlargement. Bones/joints: The thoracic spine demonstrates mild degenerative changes at multiple levels. IMPRESSION: 1. The heart demonstrates moderate diffuse enlargement. 2. Atelectatic and/or early infiltrative changes noted within both lung bases.
[2020-10-05 16:06] VITALS: BP 155/79; PULSE 84; RESP 21; O2SAT 96
[2020-10-05 16:19] LABS: Basophils % 0.2 % (0.1-2.0); Eosinophils # 0.1 K/mm3 (0.0-0.4); Eosinophils % 1.6 % (0.1-12.0); Hematocrit 29.6 % (42.0-52.0); Hemoglobin 9.8 g/dL (14.1-18.0); Lymphocytes # 1.2 K/mm3 (0.7-4.5); Lymphocytes % 13.7 % (10-50); Mean Corpuscular HGB Conc 33.2 g/dL (31.8-35.4); Mean Corpuscular Hemoglobin 32.2 pg (27.0-31.2); Mean Platelet Volume 7.2 fl (7.4-10.4); Monocytes # 0.5 K/mm3 (0.1-1.0); Monocytes % 5.5 % (1.7-9.3); Neutrophils # 6.7 K/mm3 (1.8-7.8); Neutrophils % 78.9 % (37.0-80.0); Platelet Count 255 K/mm3 (142-424); Red Blood Count 3.05 M/mm3 (4.60-6.20); Red Cell Distribution Width 17.3 % (11.5-17.5); White Blood Count 8.5 K/mm3 (4.8-10.8)
--- NOTE | 2020-10-05 16:19 | PC.NURSE ---
RT notified of ABG for patient
--- NOTE | 2020-10-05 16:20 | HMH.EDSOB ---
ED Disposition Clinical Impression: Physical deconditioning, Pleural effusion due to CHF (congestive heart failure), Chronic anemia Disposition: Home, Self-Care Condition on Discharge: Good Instructions: DI for Pleural Effusion Prescriptions: Bumetanide 0.5 mg PO DAILY #5 tab Prescription Printed Referrals: Diego Lange MD [Primary Care Provider] - - Critical Care Critical Care Time: No Attestation: On 10/05/20, the high probability of a clinically significant, sudden or life threatening deterioration of the following system(s) required my full and direct attention, intervention and personal management. The time I documented below is in addition to time spent performing reported procedures but includes the following listed in this critical care notation. Medical Decision Making - Medical Records Medical records reviewed: Yes: I reviewed the patient's medical records. - Aguilar Inquiry Pt receiving controlled substance: No Vital Signs: 10/05/20 15:55 10/05/20 16:04 10/05/20 16:06 Temperature 98.4 F Temperature Source Oral Pulse Rate 87 84 Pulse Rate [Right] 85 Respiratory Rate 22 18 21 Blood Pressure 180/95 H 155/79 H Blood Pressure [Right Arm] 155/72 H Blood Pressure Mean 106 104 Blood Pressure Mean [Right Arm] 99 02 Sat by Pulse Oximetry 97 98 96 Oxygen Delivery Method Room Air - Lab Data Lab Results 10/05/20 16:04: Urine Color Yellow, Urine Appearance Clear, Urine pH 5.5, Ur Specific [place] 1.020, Urine Protein Negative, Urine Glucose (UA) Negative, Urine Ketones Negative, Urine Blood Negative, Urine Nitrate Negative, Urine Bilirubin Negative, Urine Urobilinogen 0.2, Ur Leukocyte Esterase Negative, Urine RBC None, Urine WBC None, Ur Squamous Epith Cells Occasional, Urine Bacteria None 10/05/20 16:05: Specimen Source Right radial, O2 % room air, ABG pH 7.51 H, ABG pCO2 32.9 L, ABG pO2 74.1 L, ABG HCO3 25.7, ABG Total CO2 26.7, ABG O2 Saturation 96, ABG Base Excess 2.6 H, Lino Test Acceptable 10/05/20 16:10: WBC 8.5, RBC 3.05 L, Hgb 9.8 L, Hct 29.6 L, MCV 97.0 H, MCH 32.2 H, MCHC 33.2, RDW 17.3, Plt Count 255, MPV 7.2 L, Neut % (Auto) 78.9, Lymph % (Auto) 13.7, [place] % (Auto) 5.5, Eos % (Auto) 1.6, Baso % (Auto) 0.2, Neut # (Auto) 6.7, Lymph # (Auto) 1.2, [place] # (Auto) 0.5, Eos # (Auto) 0.1, Baso # (Auto) 0.0 10/05/20 16:10: PT 10.7, INR 1.04, APTT 18.1 L 10/05/20 16:10: Sodium 141, Potassium 3.0 L, Chloride 106, Carbon Dioxide 30, Anion Gap 8.0, BUN 16, Creatinine 0.90, Estimated Creat Clear 93, Estimated GFR 83, Est GFR ( Amer) 100, Glucose 126 H, Calcium 8.2 L, Total Bilirubin 0.8, AST 28, ALT 35, Alkaline Phosphatase 67, Troponin I 0.03, NT-Pro-B Natriuret Pep 329 H, Total Protein 6.1 L, Albumin 3.6, Globulin 2.5, Albumin/Globulin Ratio 1.4, Lipase 244, TSH 16.30 H Result diagrams: 10/05/20 16:10 10/05/20 16:10 Orders (Tests/Meds): ED MEDICATIONS Discontinued Medications Generic Name Dose Route Start Last Admin Trade Name Shaunq PRN Reason Stop Dose Admin Bumetanide 1 mg 10/05/20 18:03 Bumetanide 1mg/4ml Vial IV 10/05/20 18:04 ONCE ONE Iopamidol 100 ml 10/05/20 17:26 10/05/20 17:29 Iopamidol-370 (76%);100ml Bottle IV 10/05/20 17:27 100 ml ONCE ONE Administration Sodium Chloride 50 ml 10/05/20 17:26 10/05/20 17:28 0.9 % Sodium Chloride 50 Ml Vial IV 10/05/20 17:27 40 ml ONCE ONE Administration Sodium Chloride 10 ml 10/05/20 17:26 10/05/20 17:28 Sodium Chloride 0.9% 10ml Syr (Rad Only) IV 10/05/20 17:27 10 ml ONCE ONE Administration ORDERS Category Date Time Status Rapid PCR Covid and Flu A/B Stat Lab 10/05/20 16:05 Ordered Troponin I Q3H Lab 10/05/20 19:15 Ordered Troponin I Q3H Lab 10/05/20 22:15 Ordered - Radiology Data #1 Image(s): Chest Image Reviewed: Yes I reviewed the patient's radiology results, Yes I reviewed the patient's radiology image, Yes I have reviewed radiologist's interpretation
[2020-10-05 16:21] LABS: Chloride 106 mmol/L (98-107); Sodium 141 mmol/L (136-145)
[2020-10-05 16:23] LABS: Blood Urea Nitrogen 16 mg/dl (9-20); Creatinine Clearance Estimated 93 mL/min (50-200); Estimated Glomerular Filt Rate 83 ml/min (>60); GFR (African American) 100 ML/MIN (>60)
[2020-10-05 16:24] LABS: Alanine Aminotransferase 35 U/L (12-78); Albumin Level 3.6 g/dl (3.5-5.0); Albumin/Globulin Ratio 1.4 (1.1-1.8); Alkaline Phosphatase 67 U/L (38-126); Aspartate Amino Transferase 28 U/L (17-59); Bilirubin,Total 0.8 mg/dl (0.2-1.3); Calcium 8.2 mg/dl (8.4-10.2); Carbon Dioxide 30 mmol/L (22.0-30.0); Globulin 2.5 g/dL (1.3-3.2); Glucose 126 mg/dl (74-100); Lipase 244 U/L (23-300); Total Protein,Serum 6.1 g/dl (6.3-8.2)
[2020-10-05 16:34] LABS: NT Pro Brain Natriuretic Pep. 329 pg/mL (0-125)
[2020-10-05 16:35] LABS: ABG Base Excess 2.6 mmol/L (-2.4-2.3); ABG HCO3 25.7 mmhg (22.0-26.0); ABG Oxygen Saturation 96 % (90-100); ABG PCO2 32.9 mmhg (35.0-45.0); ABG PH 7.51 mmol/L (7.35-7.45); ABG PO2 74.1 mmhg (80-100); ABG TCO2 26.7 mmhg (23-27)
[2020-10-05 16:36] LABS: Allen's Test Acceptable; Oxygen room air %; Source Right Radial
[2020-10-05 16:38] LABS: Troponin I 0.03 ng/ml (0.00-0.034)
[2020-10-05 16:43] LABS: Microscopic, Urine URINE MICROSCOPIC (MICROSCOPIC)
[2020-10-05 16:45] LABS: Appearance,Urine CLEAR (Clear); Bilirubin,Urine Negative (Negative); Blood, Urine Negative (Negative); Color,Urine YELLOW (Yellow); Glucose,Urine (UA) Negative (Negative); Ketones,Urine Negative (Negative); Leukocyte Esterase,Urine Negative (Negative); Nitrate,Urine Negative (Negative); PH,Urine 5.5 (5.0-8.5); Protein,Urine Negative (Negative); Urobilinogen,Urine 0.2 EU/dl (0.2)
[2020-10-05 16:55] LABS: Squamous Epithelial Cell,Urine Occasional #/hpf (0-5)
--- NOTE | 2020-10-05 16:55 | CT_ITS ---
PROCEDURE INFORMATION: Exam: CTA Chest With Contrast Exam date and time: 10/05/2020 4:55 PM Age: 75 years old Clinical indication: Shortness of breath; Patient HX: SOA , R/O pe; Additional info: Short of breath TECHNIQUE: Imaging protocol: Computed tomographic angiography of the chest with contrast. 3D rendering (Not supervised by radiologist): MIP and/or 3D reconstructed images were created by the technologist. Radiation optimization: All CT scans at this facility use at least one of these dose optimization techniques: automated exposure control; mA and/or kV adjustment per patient size (includes targeted exams where dose is matched to clinical indication); or iterative reconstruction. Contrast material: ISOVUE 370; Contrast volume: 100 ml; Contrast route: INTRAVENOUS (IV); COMPARISON: CT ANGIO CHEST PE PROTOCOL 09/11/2020 5:48 AM FINDINGS: Pulmonary arteries: No evidence of pulmonary embolism. Aorta: No evidence of aortic dissection. The vasculature demonstrates diffuse mild atherosclerotic calcification. Lungs: Atelectatic changes noted within both lung bases. Pleural spaces: Small bilateral pleural effusions. There is no evidence of pneumothorax. Apical pleural thickening noted bilaterally. Heart: There is mild atherosclerotic calcification of the coronary arteries. The heart demonstrates mild diffuse enlargement. Lymph nodes: There is no evidence of mediastinal or hilar lymphadenopathy. Bones/joints: Unremarkable. No acute fracture. Soft tissues: Unremarkable. IMPRESSION: 1. No evidence of pulmonary embolism. 2. No evidence of aortic dissection. 3. The heart demonstrates mild diffuse enlargement. 4. Atelectatic changes noted within both lung bases. 5. Small bilateral pleural effusions.
--- NOTE | 2020-10-05 17:12 | PC.NURSE ---
Pt to CT
[2020-10-05 17:23] LABS: INR 1.04 (0.9-1.1); Prothrombin Time 10.7 seconds (9.2-12.1)
[2020-10-05 17:24] LABS: Activated Partial Thrombo Time 18.1 seconds (22.5-28.5)
[2020-10-05 18:32] VITALS: BP 150/79; PULSE 78; RESP 18; TEMP 36.9; O2SAT 97
== END 2020-10-05 18:33 | disposition home or self-care (01) ==
PROVIDERS: Emergency Provider Emergency Medicine; PCP Family Medicine
DX: J90 Pleural effusion, not elsewhere classified (principal); I50.43 Acute on chronic combined systolic (congestive) and diastolic (congestive) heart failure; D64.9 Anemia, unspecified
CPT/HCPCS: 71045; 71275; 80053; 81001; 82803; 83690; 83880; 84443; 84484; 85025; 85610; 85730; 93005; 96374; 99284; Q9967

== ENCOUNTER → 2020-10-18 14:06 | Outpatient (CLI) | payer MEDICARE, SELFPAY ==
--- NOTE | 2020-10-18 14:14 | XR_ITS ---
PROCEDURE: XR CHEST 2V CLINICAL HISTORY: SOB, EDEMA UNSPECIFIED,CHEST PAIN,CAD COMPARISON: CR XR CHEST PORTABLE from 08/22/2020 CR XR CHEST PORTABLE from 09/11/2020 CR XR CHEST PORTABLE from 10/05/[address] ANGIO CHEST PE PROTOCOL from 10/05/2020 FINDINGS: There is cardiomegaly without failure. Mild right basilar atelectasis has shown some improvement. Upper lobes are clear. Coronary artery calcifications and/or stents noted. No effusions or infiltrates. No acute bony abnormalities. IMPRESSION: Cardiomegaly with mild right basilar atelectasis which has shown Dictated by: Lino Stevenson MD 10/18/2020 15:50 Lino Stevenson MD in [facility] 10/18/2020 15:50
[2020-10-18 16:17] LABS: Chloride 97 mmol/L (98-107); Sodium 140 mmol/L (136-145)
[2020-10-18 16:20] LABS: Alanine Aminotransferase 24 U/L (12-78); Albumin Level 4.4 g/dl (3.5-5.0); Albumin/Globulin Ratio 1.6 (1.1-1.8); Alkaline Phosphatase 99 U/L (38-126); Aspartate Amino Transferase 32 U/L (17-59); Blood Urea Nitrogen 9 mg/dl (9-20); Calcium 8.5 mg/dl (8.4-10.2); Carbon Dioxide 29 mmol/L (22.0-30.0); Estimated Glomerular Filt Rate 66 ml/min (>60); GFR (African American) 79 ML/MIN (>60); Globulin 2.8 g/dL (1.3-3.2); Glucose 113 mg/dl (74-100); Magnesium 1.4 mg/dl (1.6-2.3); Total Protein,Serum 7.2 g/dl (6.3-8.2)
[2020-10-18 16:30] LABS: NT Pro Brain Natriuretic Pep. 184 pg/mL (0-125)
[2020-10-18 16:33] LABS: Troponin I 0.01 ng/ml (0.00-0.034)
[2020-10-18 17:12] LABS: Anion Gap 16.7 mEq/L (5-15); Potassium 2.7 mmoL/L (3.5-5.1)
== END ==
PROVIDERS: PCP Family Medicine; Visit Provider Nurse Practitioner Family
DX: R07.9 Chest pain, unspecified (principal); R60.9 Edema, unspecified; R00.0 Tachycardia, unspecified; I25.10 Atherosclerotic heart disease of native coronary artery without angina pectoris; R06.09 Other forms of dyspnea; R94.31 Abnormal electrocardiogram [ECG] [EKG]
CPT/HCPCS: 36415; 71046; 80053; 83735; 83880; 84484

== ENCOUNTER 2020-11-19 09:00 | Emergency (ER) | payer MEDICARE, SELFPAY ==
[2020-11-19] VITALS (7 sets, daily range): BP systolic 163–200; BP diastolic 81–93; PULSE 70–82; RESP 15–20; TEMP 36.7–36.8; O2SAT 90–97; BMI 34.0
--- NOTE | 2020-11-19 09:00 | ECG_ITS ---
APPROVED REPORT Exam: Resting ECG HR:75 bpm ECG Measurements Heart Rate 75 AXES IN 158 P 59 QRSd 82 QRS 20 QT 472 T 48 QTc 527 Conclusion Sinus rhythm with sinus arrhythmia with occasional premature ventricular complexes Prolonged QT Abnormal ECG Electronically signed by : Diego Griffin MD 11/19/2020 20:37:51
--- NOTE | 2020-11-19 09:09 | HMH.EDSOB ---
ED Disposition Clinical Impression: Hypokalemia, Acute exacerbation of chronic obstructive airways disease Disposition: Home, Self-Care Condition on Discharge: Fair Instructions: DI for Chronic Obstructive Pulmonary Disease Additional Instructions: Your potassium level today was low. Please follow-up with your primary care doctor in the next 2 to 3 days to have your potassium level checked again. Return to the emergency department if you feel worse in any way. Referrals: Provider,Referral, [Primary Care Provider] - 3 days - Critical Care Critical Care Time: No Attestation: On 11/19/20, the high probability of a clinically significant, sudden or life threatening deterioration of the following system(s) required my full and direct attention, intervention and personal management. The time I documented below is in addition to time spent performing reported procedures but includes the following listed in this critical care notation. Medical Decision Making - Medical Records Medical records reviewed: Yes: I reviewed the patient's medical records. - Aguilar Inquiry Pt receiving controlled substance: No Vital Signs: 11/19/20 09:03 11/19/20 09:30 11/19/20 10:00 Temperature 98.3 F Temperature Source Oral Pulse Rate 70 71 Pulse Rate [Right Radial] 73 Respiratory Rate 15 18 17 Blood Pressure 170/82 H 189/81 H Blood Pressure [Right Arm] 200/93 H Blood Pressure Mean 111 Blood Pressure Mean [Right Arm] 128 Blood Pressure Source [Right Arm] Automatic Cuff Blood Pressure Position [Right Arm] Sitting 02 Sat by Pulse Oximetry 94 L 90 L 93 L Oxygen Delivery Method Room Air Nasal Cannula Oxygen Flow Rate (LPM) 2 11/19/20 10:30 11/19/20 11:00 11/19/20 11:36 Temperature Temperature Source Pulse Rate 71 74 82 Pulse Rate [Right Radial] Respiratory Rate 16 19 18 Blood Pressure 185/93 H 185/81 H 163/91 H Blood Pressure [Right Arm] Blood Pressure Mean 115 Blood Pressure Mean [Right Arm] Blood Pressure Source [Right Arm] Blood Pressure Position [Right Arm] 02 Sat by Pulse Oximetry 93 L 91 L 96 Oxygen Delivery Method Nasal Cannula Oxygen Flow Rate (LPM) 2 - Lab Data Lab Results 11/19/20 09:05: WBC 9.8, RBC 3.97 L, Hgb 11.2 L, Hct 37.1 L, MCV 93.3, MCH 28.2, MCHC 30.3 L, RDW 16.7, Plt Count 501 H, MPV 8.1, Neut % (Auto) 74.6, Lymph % (Auto) 14.2, [place] % (Auto) 6.2, Eos % (Auto) 4.0, Baso % (Auto) 1.0, Neut # (Auto) 7.3, Lymph # (Auto) 1.4, [place] # (Auto) 0.6, Eos # (Auto) 0.4, Baso # (Auto) 0.1 11/19/20 09:05: Sodium 141, Potassium 2.6 L*, Chloride 101, Carbon Dioxide 30, Anion Gap 12.6, BUN 9, Creatinine 0.70, Estimated Creat Clear 92, Estimated GFR 111, Est GFR ( Amer) 134, Glucose 108 H, Calcium 8.2 L, Total Bilirubin 0.8, AST 35, ALT 17, Alkaline Phosphatase 73, Troponin I 0.01, NT-Pro-B Natriuret Pep 1140 H, Total Protein 6.7, Albumin 3.5, Globulin 3.2, Albumin/Globulin Ratio 1.1 11/19/20 09:05: SARS-CoV-2 (PCR) Not detected, Influenza A Untype (PCR) Not detected, Influenza Type B (PCR) Not detected Result diagrams: 11/19/20 09:05 11/19/20 09:05 Orders (Tests/Meds): ED MEDICATIONS Discontinued Medications Generic Name Dose Route Start Last Admin Trade Name Freq PRN Reason Stop Dose Admin Furosemide 40 mg 11/19/20 10:02 11/19/20 10:45 Furosemide 40mg/4ml Vial IV 11/19/20 10:03 40 mg ONCE ONE Administration Potassium Chloride 30 meq 11/19/20 09:36 11/19/20 09:40 Potassium Chloride 10meq Tablet.Er PO 11/19/20 09:37 30 meq ONCE ONE Administration ORDERS Category Date Time Status Troponin I Q3H Lab 11/19/20 12:15 Ordered - Radiology Data #1 Image(s): Chest Image Reviewed: Yes I reviewed the patient's radiology results, Yes I have reviewed radiologist's interpretation - ECG Data Tracing #1 EGD was performed at [facility] 1 AM. It shows a normal sinus rhythm with a ventricular rate of 75 bpm. There are occasi
--- NOTE | 2020-11-19 09:13 | XR_ITS ---
PROCEDURE INFORMATION: Exam: XR Chest Exam date and time: 11/19/2020 9:13 AM Age: 75 years old Clinical indication: Shortness of breath; Patient HX: Cough, SOB TECHNIQUE: Imaging protocol: XR of the chest. Views: 1 view. COMPARISON: CR XR CHEST 2V 10/18/2020 2:17 PM FINDINGS: Lungs: COPD and interstitial prominence. Pleural spaces: No pleural effusion. Heart/Mediastinum: Cardiomegaly and prominent epicardial fat. Bones/joints: Mild degenerative change. Soft tissues: Poorly defined density overlying the right lung base, suggesting prominent epicardial fat. Correlation with PA and lateral chest radiographs can be performed for confirmation if clinically indicated. IMPRESSION: 1. COPD and interstitial prominence. 2. Poorly defined density overlying the right lung base, suggesting prominent epicardial fat. Correlation with PA and lateral chest radiographs can be performed for confirmation if clinically indicated.
[2020-11-19 09:20] LABS: Coronavirus 19, PCR Not Detected (NotDetected); Influenza A, PCR Not Detected (NotDetected); Influenza B, PCR Not Detected (NotDetected)
[2020-11-19 09:22] LABS: Basophils # 0.1 K/mm3 (0-0.2); Eosinophils # 0.4 K/mm3 (0.0-0.4); Hematocrit 37.1 % (42.0-52.0); Hemoglobin 11.2 g/dL (14.1-18.0); Lymphocytes # 1.4 K/mm3 (0.7-4.5); Lymphocytes % 14.2 % (10-50); Mean Corpuscular HGB Conc 30.3 g/dL (31.8-35.4); Mean Corpuscular Hemoglobin 28.2 pg (27.0-31.2); Mean Corpuscular Volume 93.3 fl (80-94); Mean Platelet Volume 8.1 fl (7.4-10.4); Monocytes # 0.6 K/mm3 (0.1-1.0); Monocytes % 6.2 % (1.7-9.3); Neutrophils # 7.3 K/mm3 (1.8-7.8); Neutrophils % 74.6 % (37.0-80.0); Platelet Count 501 K/mm3 (142-424); Red Blood Count 3.97 M/mm3 (4.60-6.20); Red Cell Distribution Width 16.7 % (11.5-17.5); White Blood Count 9.8 K/mm3 (4.8-10.8)
[2020-11-19 09:28] LABS: Alanine Aminotransferase 17 U/L (12-78); Albumin Level 3.5 g/dl (3.5-5.0); Albumin/Globulin Ratio 1.1 (1.1-1.8); Alkaline Phosphatase 73 U/L (38-126); Anion Gap 12.6 mEq/L (5-15); Aspartate Amino Transferase 35 U/L (17-59); Bilirubin,Total 0.8 mg/dl (0.2-1.3); Blood Urea Nitrogen 9 mg/dl (9-20); Calcium 8.2 mg/dl (8.4-10.2); Carbon Dioxide 30 mmol/L (22.0-30.0); Chloride 101 mmol/L (98-107); Creatinine Clearance Estimated 92 mL/min (50-200); Estimated Glomerular Filt Rate 111 ml/min (>60); GFR (African American) 134 ML/MIN (>60); Globulin 3.2 g/dL (1.3-3.2); Glucose 108 mg/dl (74-100); Sodium 141 mmol/L (136-145); Total Protein,Serum 6.7 g/dl (6.3-8.2)
[2020-11-19 09:35] LABS: Potassium 2.6 mmoL/L (3.5-5.1)
[2020-11-19 09:39] LABS: NT Pro Brain Natriuretic Pep. 1140 pg/mL (0-125)
[2020-11-19 09:41] LABS: Troponin I 0.01 ng/ml (0.00-0.034)
== END 2020-11-19 12:07 | disposition home or self-care (01) ==
PROVIDERS: Emergency Provider Emergency Medicine
DX: J44.1 Chronic obstructive pulmonary disease with (acute) exacerbation (principal); Z20.822 Contact with and (suspected) exposure to COVID-19; E87.6 Hypokalemia; Z79.899 Other long term (current) drug therapy
CPT/HCPCS: 71045; 80053; 83880; 84484; 85025; 93005; 96374; 99283; U0003

== ENCOUNTER 2020-11-30 09:59 | Emergency (ER) | payer MEDICARE, SELFPAY ==
[2020-11-30] VITALS (7 sets, daily range): BP systolic 164–179; BP diastolic 69–86; PULSE 66–84; RESP 18–22; TEMP 36.4; O2SAT 94–96; BMI 34.4
--- NOTE | 2020-11-30 10:12 | ECG_ITS ---
APPROVED REPORT Exam: Resting ECG HR:72 bpm ECG Measurements Heart Rate 72 AXES [place] 180 P 66 QRSd 76 QRS 17 QT 468 T 61 QTc 512 Conclusion Normal sinus rhythm Prolonged QT Abnormal ECG Electronically signed by : Diego Griffin MD 11/30/2020 16:42:11
--- NOTE | 2020-11-30 10:13 | XR_ITS ---
PROCEDURE: XR CHEST PORTABLE CLINICAL HISTORY: cough COMPARISON: CR XR CHEST PORTABLE from 10/05/[address] ANGIO CHEST PE PROTOCOL from 10/05/2020 CR XR CHEST 2V from 10/18/2020 CR XR CHEST PORTABLE from 11/19/2020 FINDINGS: There is mild cardiomegaly without failure. Lung bases are under penetrated. Prominent pericardial fat pad on the right. The lungs are clear without infiltrates, suspicious nodules, or pleural effusions. No acute bony abnormalities. IMPRESSION: Cardiomegaly otherwise negative Dictated by: Lino Stevenson MD 11/30/2020 11:21 Lino Stevenson MD in [facility] 11/30/2020 11:21
[2020-11-30 10:27] LABS: Basophils # 0.1 K/mm3 (0-0.2); Basophils % 0.8 % (0.1-2.0); Eosinophils # 0.4 K/mm3 (0.0-0.4); Eosinophils % 4.4 % (0.1-12.0); Hematocrit 38.6 % (42.0-52.0); Hemoglobin 11.9 g/dL (14.1-18.0); Lymphocytes # 1.2 K/mm3 (0.7-4.5); Lymphocytes % 14.9 % (10-50); Mean Corpuscular HGB Conc 30.8 g/dL (31.8-35.4); Mean Corpuscular Hemoglobin 28.6 pg (27.0-31.2); Mean Corpuscular Volume 92.7 fl (80-94); Mean Platelet Volume 7.4 fl (7.4-10.4); Monocytes # 0.5 K/mm3 (0.1-1.0); Monocytes % 6.1 % (1.7-9.3); Neutrophils % 73.9 % (37.0-80.0); Platelet Count 410 K/mm3 (142-424); Red Blood Count 4.16 M/mm3 (4.60-6.20); Red Cell Distribution Width 16.2 % (11.5-17.5); White Blood Count 8.1 K/mm3 (4.8-10.8)
--- NOTE | 2020-11-30 10:27 | PC.NURSE ---
rad at for portable cxr
--- NOTE | 2020-11-30 10:27 | HMH.EDSOB ---
ED Disposition Clinical Impression: COPD exacerbation Disposition: Home, Self-Care Condition on Discharge: Good Instructions: DI for Chronic Obstructive Pulmonary Disease Prescriptions: Albuterol Sulfate [Albuterol Sulfate Hfa] 2 puff IH Q4HP PRN #1 each PRN Reason: Wheezing Prescription Printed methylPREDNISolone [Medrol 4mg tab] 4 mg PO DIRECTED #21 tab Prescription Printed Referrals: Diego Lange MD [Primary Care Provider] - - Critical Care Critical Care Time: No Attestation: On , the high probability of a clinically significant, sudden or life threatening deterioration of the following system(s) required my full and direct attention, intervention and personal management. The time I documented below is in addition to time spent performing reported procedures but includes the following listed in this critical care notation. Medical Decision Making - Medical Records Medical records reviewed: Yes: I reviewed the patient's medical records. - Aguilar Inquiry Pt receiving controlled substance: No Vital Signs: 11/30/20 10:00 11/30/20 10:30 11/30/20 11:00 Temperature 97.6 F Temperature Source Oral Pulse Rate 71 66 Pulse Rate [Right Radial] 67 Respiratory Rate 22 Blood Pressure 174/78 H 174/78 H Blood Pressure [Right Arm] 173/86 H Blood Pressure Mean Blood Pressure Mean [Right Arm] 115 Blood Pressure Source [Right Arm] Automatic Cuff Blood Pressure Position [Right Arm] Sitting 02 Sat by Pulse Oximetry 96 96 94 L Oxygen Delivery Method Room Air 11/30/20 11:31 11/30/20 11:40 Temperature Temperature Source Pulse Rate 66 78 Pulse Rate [Right Radial] Respiratory Rate 18 Blood Pressure 164/69 H Blood Pressure [Right Arm] Blood Pressure Mean 100 Blood Pressure Mean [Right Arm] Blood Pressure Source [Right Arm] Blood Pressure Position [Right Arm] 02 Sat by Pulse Oximetry 94 L Oxygen Delivery Method - Lab Data Lab Results 11/30/20 10:17: SARS-CoV-2 (PCR) Not detected, Influenza A Untype (PCR) Not detected, Influenza Type B (PCR) Not detected 11/30/20 10:18: WBC 8.1, RBC 4.16 L, Hgb 11.9 L, Hct 38.6 L, MCV 92.7, MCH 28.6, MCHC 30.8 L, RDW 16.2, Plt Count 410, MPV 7.4, Neut % (Auto) 73.9, Lymph % (Auto) 14.9, [place] % (Auto) 6.1, Eos % (Auto) 4.4, Baso % (Auto) 0.8, Neut # (Auto) 6.0, Lymph # (Auto) 1.2, [place] # (Auto) 0.5, Eos # (Auto) 0.4, Baso # (Auto) 0.1 11/30/20 10:18: PT 11.4, INR 0.96, APTT 26.5 11/30/20 10:18: Sodium 141, Potassium 3.3 L, Chloride 106, Carbon Dioxide 26, Anion Gap 12.3, BUN 7 L, Creatinine 0.70, Estimated Creat Clear 93, Estimated GFR 111, Est GFR ( Amer) 134, Glucose 102 H, Calcium 8.7, Total Bilirubin 0.6, AST 33, ALT 17, Alkaline Phosphatase 93, Troponin I < 0.01, NT-Pro-B Natriuret Pep 535 H, Total Protein 7.3, Albumin 3.9, Globulin 3.4 H, Albumin/Globulin Ratio 1.1, TSH 0.52 Result diagrams: 11/30/20 10:18 11/30/20 10:18 Orders (Tests/Meds): ED MEDICATIONS Discontinued Medications Generic Name Dose Route Start Last Admin Trade Name Freq PRN Reason Stop Dose Admin Albuterol/Ipratropium 3 ml 11/30/20 10:13 11/30/20 11:38 Ipratropium/Albuterol 3 Ml Neb IH 11/30/20 10:14 3 ml ONCE ONE Administration Aspirin 325 mg 11/30/20 10:13 11/30/20 10:44 Aspirin 325mg Tablet PO 11/30/20 10:14 325 mg ONCE ONE Administration Dexamethasone Sodium Phosphate 10 mg 11/30/20 10:13 11/30/20 10:44 Dexamethasone 4mg/Ml 5ml Mdv IV 11/30/20 10:14 10 mg ONCE ONE Administration ORDERS Category Date Time Status Troponin I Q3H Lab 11/30/20 13:15 Ordered Troponin I Q3H Lab 11/30/20 16:15 Ordered - Radiology Data #1 Image(s): Chest Image Reviewed: Yes I reviewed the patient's radiology results, Yes I reviewed the patient's radiology image, Yes I have reviewed radiologist's interpretation IMPRESSION: Cardiomegaly otherwise negative - ECG Data Tracing #1 Normal olimpia
[2020-11-30 10:31] LABS: Chloride 106 mmol/L (98-107); Potassium 3.3 mmoL/L (3.5-5.1); Sodium 141 mmol/L (136-145)
[2020-11-30 10:34] LABS: Alanine Aminotransferase 17 U/L (12-78); Albumin Level 3.9 g/dl (3.5-5.0); Albumin/Globulin Ratio 1.1 (1.1-1.8); Alkaline Phosphatase 93 U/L (38-126); Anion Gap 12.3 mEq/L (5-15); Aspartate Amino Transferase 33 U/L (17-59); Bilirubin,Total 0.6 mg/dl (0.2-1.3); Blood Urea Nitrogen 7 mg/dl (9-20); Carbon Dioxide 26 mmol/L (22.0-30.0); Creatinine Clearance Estimated 93 mL/min (50-200); Estimated Glomerular Filt Rate 111 ml/min (>60); GFR (African American) 134 ML/MIN (>60); Globulin 3.4 g/dL (1.3-3.2); Total Protein,Serum 7.3 g/dl (6.3-8.2)
[2020-11-30 10:35] LABS: Calcium 8.7 mg/dl (8.4-10.2); Glucose 102 mg/dl (74-100)
[2020-11-30 10:37] LABS: Activated Partial Thrombo Time 26.5 seconds (22.8-30.6); Prothrombin Time 11.4 seconds (10.1-12.5)
[2020-11-30 10:41] LABS: INR 0.96 (0.9-1.1)
[2020-11-30 10:45] LABS: NT Pro Brain Natriuretic Pep. 535 pg/mL (0-125)
[2020-11-30 10:52] LABS: Troponin I < 0.01 ng/ml (0.00-0.034)
[2020-11-30 10:54] LABS: Coronavirus 19, PCR Not Detected (NotDetected); Influenza A, PCR Not Detected (NotDetected); Influenza B, PCR Not Detected (NotDetected)
[2020-11-30 11:06] LABS: Thyroid Stimulating Hormone 0.52 uIU/mL (0.465-4.68)
--- NOTE | 2020-11-30 11:12 | PC.NURSE ---
Respiratory called about a deoneb for pet.
--- NOTE | 2020-11-30 11:13 | PC.NURSE ---
rt called for neb tx.
--- NOTE | 2020-11-30 11:41 | PC.NURSE ---
RT at bedside
== END 2020-11-30 12:26 | disposition home or self-care (01) ==
PROVIDERS: Emergency Provider Emergency Medicine; PCP Family Medicine
DX: J44.1 Chronic obstructive pulmonary disease with (acute) exacerbation (principal); Z20.822 Contact with and (suspected) exposure to COVID-19; Z87.891 Personal history of nicotine dependence
CPT/HCPCS: 71045; 80053; 83880; 84443; 84484; 85025; 85610; 85730; 93005; 96374; 99283; C9803; U0003; U0005

== ENCOUNTER 2020-12-18 00:14 | Emergency (ER) | payer MEDICARE, SELFPAY ==
[2020-12-18] VITALS (12 sets, daily range): BP systolic 101–149; BP diastolic 44–79; PULSE 98–108; RESP 17–24; TEMP 36.6–36.8; O2SAT 90–96; BMI 34.0
--- NOTE | 2020-12-18 00:15 | ECG_ITS ---
APPROVED REPORT Exam: Resting ECG HR:102 bpm ECG Measurements Heart Rate 102 AXES [place] 180 P 59 QRSd 78 QRS 15 QT 372 T 62 QTc 484 Conclusion Sinus tachycardia Otherwise normal ECG Electronically signed by : Diego Griffin MD 12/20/2020 17:52:16
--- NOTE | 2020-12-18 00:25 | XR_ITS ---
PROCEDURE INFORMATION: Exam: XR Chest Exam date and time: 12/18/2020 12:25 AM Age: 75 years old Clinical indication: Pain; Shortness of breath; Angina pectoris; Additional info: Cp, SOJavier TECHNIQUE: Imaging protocol: XR of the chest. Views: 2 views. COMPARISON: CR XR CHEST PORTABLE 11/30/2020 10:31 AM FINDINGS: Lungs: Possible bibasilar atelectatic changes. No definite focal airspace consolidation. Pleural spaces: No pleural effusion. No pneumothorax. Heart/Mediastinum: Persistent prominent cardiac silhouette. Bones/joints: No acute osseous findings. IMPRESSION: No focal consolidation.
[2020-12-18 00:41] LABS: Coronavirus 19, PCR Not Detected (NotDetected); Influenza A, PCR Not Detected (NotDetected); Influenza B, PCR Not Detected (NotDetected)
[2020-12-18 00:46] LABS: Basophils % 0.2 % (0.1-2.0); Eosinophils # 0.5 K/mm3 (0.0-0.4); Eosinophils % 4.4 % (0.1-12.0); Hematocrit 41.8 % (42.0-52.0); Hemoglobin 12.8 g/dL (14.1-18.0); Lymphocytes # 1.6 K/mm3 (0.7-4.5); Lymphocytes % 13.5 % (10-50); Mean Corpuscular HGB Conc 30.7 g/dL (31.8-35.4); Mean Corpuscular Hemoglobin 27.5 pg (27.0-31.2); Mean Corpuscular Volume 89.5 fl (80-94); Monocytes # 0.8 K/mm3 (0.1-1.0); Monocytes % 6.9 % (1.7-9.3); Platelet Count 410 K/mm3 (142-424); Red Blood Count 4.67 M/mm3 (4.60-6.20); Red Cell Distribution Width 16.6 % (11.5-17.5)
[2020-12-18 00:57] LABS: Anion Gap 15.1 mEq/L (5-15); Blood Urea Nitrogen 12 mg/dl (9-20); Calcium 8.9 mg/dl (8.4-10.2); Carbon Dioxide 17 mmol/L (22.0-30.0); Chloride 109 mmol/L (98-107); Creatinine Clearance Estimated 92 mL/min (50-200); Estimated Glomerular Filt Rate 95 ml/min (>60); GFR (African American) 115 ML/MIN (>60); Glucose 140 mg/dl (74-100); Magnesium 1.4 mg/dl (1.6-2.3); Potassium 3.1 mmoL/L (3.5-5.1); Sodium 138 mmol/L (136-145)
[2020-12-18 00:58] LABS: Alanine Aminotransferase 27 U/L (12-78); Albumin Level 4.2 g/dl (3.5-5.0); Alkaline Phosphatase 89 U/L (38-126); Amylase 73 U/L (30-110); Aspartate Amino Transferase 35 U/L (17-59); Bilirubin,Direct 0.4 mg/dl (0.0-0.4); Bilirubin,Indirect 0.2 mg/dL (0.0-0.9); Bilirubin,Total 0.6 mg/dl (0.2-1.3); Bilirubin,Unconjugated 0.2 mg/dL (0.0-1.1); Lipase 87 U/L (23-300); Total Protein,Serum 7.8 g/dl (6.3-8.2)
[2020-12-18 01:02] LABS: C-Reactive Protein 15.3 mg/L (0-4)
--- NOTE | 2020-12-18 01:10 | ECG_ITS ---
APPROVED REPORT Exam: Resting ECG HR:98 bpm ECG Measurements Heart Rate 98 AXES [place] 182 P 62 QRSd 82 QRS 4 QT 386 T 58 QTc 492 Conclusion Normal sinus rhythm Cannot rule out Inferior infarct, age undetermined Abnormal ECG Electronically signed by : Diego Griffin MD 12/20/2020 17:51:59
[2020-12-18 01:12] LABS: Troponin I < 0.01 ng/ml (0.00-0.034)
[2020-12-18 01:16] LABS: Procalcitonin 0.182 ng/mL (0.0-2.0); T4 (Thyroxine) 7.3 ug/dl (5.53-11.0)
[2020-12-18 01:17] LABS: Erythrocyte Sedimentation Rate 78 mm/hr (0-20)
[2020-12-18 01:29] LABS: Thyroid Stimulating Hormone 1.26 uIU/mL (0.465-4.68)
[2020-12-18 01:47] LABS: NT Pro Brain Natriuretic Pep. 68.1 pg/mL (0-125)
--- NOTE | 2020-12-18 01:53 | PC.NURSE ---
After ambulating to the BR, pt states a dull ache is present in the same area it was before. His pain with at a 0, currently 2/10.
--- NOTE | 2020-12-18 02:39 | HMH.EDCP ---
ED Disposition Clinical Impression: Obesity (BMI 30.0-34.9), Hypokalemia Chest pain Qualifiers: Chest pain type: precordial pain Qualified Code(s): R07.2 - Precordial pain Disposition: Home, Self-Care Condition on Discharge: Good Instructions: DI for Chest Pain Additional Instructions: call [facility] this am and return to ed if any issues or more chest pain Referrals: Diego Lange MD [Primary Care Provider] - - Critical Care Critical Care Time: No Attestation: On 12/18/20, the high probability of a clinically significant, sudden or life threatening deterioration of the following system(s) required my full and direct attention, intervention and personal management. The time I documented below is in addition to time spent performing reported procedures but includes the following listed in this critical care notation. Medical Decision Making - Medical Records Medical records reviewed: Yes: I reviewed the patient's medical records. - Aguilar Inquiry Pt receiving controlled substance: No Vital Signs: 12/18/20 00:14 12/18/20 00:53 12/18/20 01:00 Temperature 97.9 F Temperature Source Oral Pulse Rate 108 H 100 H Pulse Rate [Right] 98 H Respiratory Rate 24 17 17 Blood Pressure 114/58 L 101/44 L Blood Pressure [Left Arm] 131/79 Blood Pressure Mean 76 63 Blood Pressure Mean [Left Arm] 96 Blood Pressure Source [Left Arm] Automatic Cuff 02 Sat by Pulse Oximetry 94 L 96 94 L Oxygen Delivery Method Room Air Nasal Cannula Nasal Cannula Oxygen Flow Rate (LPM) 2 2 12/18/20 01:28 12/18/20 01:30 12/18/20 01:51 Temperature Temperature Source Pulse Rate 98 H 98 H 103 H Pulse Rate [Right] Respiratory Rate 20 21 18 Blood Pressure 107/56 L 106/56 L 149/73 H Blood Pressure [Left Arm] Blood Pressure Mean 68 72 87 Blood Pressure Mean [Left Arm] Blood Pressure Source [Left Arm] 02 Sat by Pulse Oximetry 95 95 95 Oxygen Delivery Method Room Air Nasal Cannula Nasal Cannula Oxygen Flow Rate (LPM) 2 2 2 12/18/20 02:00 12/18/20 02:30 Temperature Temperature Source Pulse Rate 99 H 100 H Pulse Rate [Right] Respiratory Rate 21 18 Blood Pressure 114/61 103/62 L Blood Pressure [Left Arm] Blood Pressure Mean 78 72 Blood Pressure Mean [Left Arm] Blood Pressure Source [Left Arm] 02 Sat by Pulse Oximetry 93 L 93 L Oxygen Delivery Method Nasal Cannula Nasal Cannula Oxygen Flow Rate (LPM) 2 2 - Lab Data Lab results reviewed: Yes: I reviewed the patient's lab results. Lab Results 12/18/20 00:17: WBC 12.0 H, RBC 4.67, Hgb 12.8 L, Hct 41.8 L, MCV 89.5, MCH 27.5, MCHC 30.7 L, RDW 16.6, Plt Count 410, MPV 8.0, Neut % (Auto) 75.0, Lymph % (Auto) 13.5, [place] % (Auto) 6.9, Eos % (Auto) 4.4, Baso % (Auto) 0.2, Neut # (Auto) 9.0 H, Lymph # (Auto) 1.6, [place] # (Auto) 0.8, Eos # (Auto) 0.5 H, Baso # (Auto) 0.0, ESR 78 H 12/18/20 00:17: Sodium 138, Potassium 3.1 L, Chloride 109 H, Carbon Dioxide 17 L, Anion Gap 15.1 H, BUN 12, Creatinine 0.80, Estimated Creat Clear 92, Estimated GFR 95, Est GFR ( Amer) 115, Glucose 140 H, Calcium 8.9, Magnesium 1.4 L, Troponin I < 0.01, C-Reactive Protein 15.3 H, Procalcitonin 0.182 12/18/20 00:17: SARS-CoV-2 (PCR) Not detected, Influenza A Untype (PCR) Not detected, Influenza Type B (PCR) Not detected 12/18/20 00:17: Total Bilirubin 0.6, Direct Bilirubin 0.4, Conjugated Bilirubin 0.0, Indirect Bilirubin 0.2, Unconjugated Bilirubin 0.2, AST 35, ALT 27, Alkaline Phosphatase 89, Total Protein 7.8, Albumin 4.2, Amylase 73, Lipase 87, TSH 1.26, Thyroxine (T4) 7.3 12/18/20 00:17: NT-Pro-B Natriuret Pep 68.1 12/18/20 03:12: Troponin I < 0.01 Result diagrams: 12/18/20 00:17 12/18/20 00:17 Orders (Tests/Meds): ED MEDICATIONS Generic Name Dose Route Start Last Admin Trade Name Freq PRN Reason Stop Dose Admin Sodium Chloride 1,000 mls @ 999 mls/hr 12/18/20 00:45 12/18/20 00:35 Sod Chlor 0.9% 1000ml Bag IV 12/18/20 01:45 999 mls/hr .Q1H1M JUICE Ad
[2020-12-18 03:53] LABS: Troponin I < 0.01 ng/ml (0.00-0.034)
== END 2020-12-18 04:35 | disposition home or self-care (01) ==
PROVIDERS: Emergency Provider Emergency Medicine; PCP Family Medicine
DX: R07.2 Precordial pain (principal); E87.6 Hypokalemia; I25.10 Atherosclerotic heart disease of native coronary artery without angina pectoris; Z20.822 Contact with and (suspected) exposure to COVID-19; Z79.899 Other long term (current) drug therapy
CPT/HCPCS: 71046; 80048; 80076; 82150; 83690; 83735; 83880; 84145; 84436; 84443; 84484; 85025; 85651; 86140; 93005; 99283; C9803; J2405; U0003; U0005

== ENCOUNTER 2020-12-20 00:23 | Emergency (ER) | payer MEDICARE, SELFPAY ==
--- NOTE | 2020-12-20 00:20 | ECG_ITS ---
APPROVED REPORT Exam: Resting ECG HR:89 bpm ECG Measurements Heart Rate 89 AXES [place] 174 P 64 QRSd 86 QRS 8 QT 396 T 56 QTc 481 Conclusion Normal sinus rhythm Prolonged QT Abnormal ECG Electronically signed by : Diego Griffin MD 12/20/2020 17:48:34
[2020-12-20 00:21] VITALS: BP 130/72; PULSE 90; RESP 18; TEMP 36.5; O2SAT 93; BMI 34.0
--- NOTE | 2020-12-20 00:24 | XR_ITS ---
PROCEDURE INFORMATION: Exam: XR Pelvis Exam date and time: 12/20/2020 12:24 AM Age: 75 years old Clinical indication: Pelvic pain; Additional info: Fall TECHNIQUE: Imaging protocol: XR pelvis. Views: 1 or 2 view. COMPARISON: CT ABDOMEN PELVIS W CON 12/20/2020 1:34 AM FINDINGS: Bones/joints: Unremarkable. No acute fracture. Soft tissues: Unremarkable. IMPRESSION: No acute findings.
--- NOTE | 2020-12-20 00:24 | CT_ITS ---
PROCEDURE INFORMATION: Exam: CT Cervical Spine Without Contrast Exam date and time: 12/20/2020 12:24 AM Age: 75 years old Clinical indication: Neck pain; Additional info: Fall TECHNIQUE: Imaging protocol: Computed tomography images of the cervical spine without contrast. Radiation optimization: All CT scans at this facility use at least one of these dose optimization techniques: automated exposure control; mA and/or kV adjustment per patient size (includes targeted exams where dose is matched to clinical indication); or iterative reconstruction. COMPARISON: [facility] CT CERVICAL SPINE W/O CONT 03/15/2017 10:27 AM FINDINGS: Bones/joints: No acute fracture. Normal alignment. Discs/Spinal canal/Neural foramina: There is ankylosis of the C3-C4 intervertebral disc space. Intervertebral disc space narrowing noted at C4-C5 and C5-C6. There is 1-2 mm of posterior osseous encroachment into the anterior epidural space at C3-C4, C4-C5, and C5-C6. There is bilateral facet degeneration noted from C2-C3 through C6-C7. There is narrowing and mild hypertrophic changes noted between the anterior arch of C1 and the dens of C2. Lungs: Lung apices are normal. Soft tissues: Atheromatous calcification left carotid bulb and thoracic aortic arch. IMPRESSION: No acute findings.
--- NOTE | 2020-12-20 00:24 | XR_ITS ---
PROCEDURE INFORMATION: Exam: XR Chest Exam date and time: 12/20/2020 12:24 AM Age: 75 years old Clinical indication: Angina; Additional info: Cp TECHNIQUE: Imaging protocol: XR of the chest. Views: 1 view. COMPARISON: CR XR CHEST 2V 12/18/2020 12:39 AM FINDINGS: Limited inspiration and penetration of the chest with obese body habitus. Lordotic projection presented. Lungs: Chronic parenchymal changes No consolidation. Pleural spaces: Unremarkable. No pleural effusion. No pneumothorax. Heart/Mediastinum: Unremarkable. No cardiomegaly. Bones/joints: Unremarkable. IMPRESSION: No acute findings.
--- NOTE | 2020-12-20 00:24 | CT_ITS ---
PROCEDURE INFORMATION: Exam: CT Head Without Contrast Exam date and time: 12/20/2020 12:24 AM Age: 75 years old Clinical indication: Pain; Headache; Additional info: Fall TECHNIQUE: Imaging protocol: Computed tomography of the head without contrast. 3D rendering (Not supervised by radiologist): MIP and/or 3D reconstructed images were created by the technologist. Radiation optimization: All CT scans at this facility use at least one of these dose optimization techniques: automated exposure control; mA and/or kV adjustment per patient size (includes targeted exams where dose is matched to clinical indication); or iterative reconstruction. COMPARISON: [facility] CT HEAD W/O CONTRAST 03/15/2017 10:23 AM FINDINGS: Brain: Mild central and peripheral cerebral atrophy is noted. No hemorrhage. Unremarkable white matter. No mass effect. Cerebral ventricles: Mild atrophy related global ventriculomegaly is identified. Paranasal sinuses: Visualized sinuses are unremarkable. No fluid levels. Mastoid air cells: Visualized mastoid air cells are well aerated. Vasculature: Intraranial artery density is normal. Bones/joints: Unremarkable. No acute fracture. Soft tissues: Right ocular cataract surgery has been performed. IMPRESSION: 1. Mild central and peripheral cerebral atrophy. 2. No acute intracranial abnormality.
[2020-12-20 00:35] LABS: Basophils % 0.4 % (0.1-2.0); Eosinophils # 0.6 K/mm3 (0.0-0.4); Hematocrit 40.2 % (42.0-52.0); Hemoglobin 12.2 g/dL (14.1-18.0); Lymphocytes # 1.8 K/mm3 (0.7-4.5); Lymphocytes % 18.1 % (10-50); Mean Corpuscular HGB Conc 30.2 g/dL (31.8-35.4); Mean Corpuscular Hemoglobin 27.3 pg (27.0-31.2); Mean Corpuscular Volume 90.4 fl (80-94); Mean Platelet Volume 8.1 fl (7.4-10.4); Monocytes # 0.6 K/mm3 (0.1-1.0); Monocytes % 5.5 % (1.7-9.3); Platelet Count 374 K/mm3 (142-424); Red Blood Count 4.45 M/mm3 (4.60-6.20); Red Cell Distribution Width 17.2 % (11.5-17.5)
--- NOTE | 2020-12-20 00:36 | CT_ITS ---
PROCEDURE INFORMATION: Exam: CT Abdomen And Pelvis With Contrast Exam date and time: 12/20/2020 12:36 AM Age: 75 years old Clinical indication: Abdominal pain; Generalized TECHNIQUE: Imaging protocol: Computed tomography of the abdomen and pelvis with contrast. Radiation optimization: All CT scans at this facility use at least one of these dose optimization techniques: automated exposure control; mA and/or kV adjustment per patient size (includes targeted exams where dose is matched to clinical indication); or iterative reconstruction. Contrast material: ISOVUE; Contrast volume: 75 ml; Contrast route: IV; COMPARISON: ABDPELW/O CT ABD PELVIS W/O CONTRAST 12/07/2016 4:05 AM FINDINGS: Lungs: Chronic parenchymal changes within both lung bases. Coronary artery calcification is identified. There are multiple visible unenlarged lymph nodes identified within the middle mediastinum, likely reflecting a component of reactive lymphadenopathy. No pleural effusion. Liver: Hepatomegaly. There is diminished attenuation within the liver compared to the spleen suggesting hepatic steatosis. No evidence of intrahepatic mass. No intrahepatic biliary dilitation. Gallbladder and bile ducts: Mildly prominent gallbladder size which could be on the basis of prolonged fasting. No calcified stones. No ductal dilation. Gallbladder wall thickness is normal. Pancreas: Normal. No ductal dilation. Spleen: Normal. No splenomegaly. Adrenal glands: Normal. No mass. Kidneys and ureters: Normal. No hydronephrosis. Stomach and bowel: Diffuse fluid distention of the colon. The small bowel does not appear dilated. No evidence of thickening of large or small bowel. Prominent food and fluid distention of the stomach. The duodenum appears unremarkable. Small bowel mesentery is normal. Probable ileus. Appendix: Appendectomy has been performed. Intraperitoneal space: Unremarkable. No free air. No significant fluid collection. Vasculature: Atheromatous calcification of the aorta, visceral, iliac, and femoral arteries. No abdominal aortic aneurysm. Lymph nodes: Unremarkable. No enlarged lymph nodes. Urinary bladder: Unremarkable as visualized. Reproductive: Unremarkable as visualized. Bones/joints: Unremarkable. No acute fracture. Soft tissues: Unremarkable. IMPRESSION: 1. Diffuse fluid distention of the colon would suggest the presence of ileus. Certainly no evidence of obstruction. 2. Prominent gallbladder size which could be on the basis of prolonged fasting. No evidence of cholelithiasis. The gallbladder wall is normal in thickness. 3. Mild hepatomegaly with changes suggesting hepatic steatosis.
[2020-12-20 00:39] LABS: Coronavirus 19, PCR Not Detected (NotDetected); Influenza A, PCR Not Detected (NotDetected); Influenza B, PCR Not Detected (NotDetected)
[2020-12-20 00:42] LABS: Alanine Aminotransferase 20 U/L (12-78); Albumin Level 4.1 g/dl (3.5-5.0); Albumin/Globulin Ratio 1.2 (1.1-1.8); Alkaline Phosphatase 82 U/L (38-126); Amylase 70 U/L (30-110); Anion Gap 14.5 mEq/L (5-15); Aspartate Amino Transferase 35 U/L (17-59); Bilirubin,Total 0.6 mg/dl (0.2-1.3); Blood Urea Nitrogen 10 mg/dl (9-20); Carbon Dioxide 16 mmol/L (22.0-30.0); Chloride 111 mmol/L (98-107); Creatinine Clearance Estimated 92 mL/min (50-200); Estimated Glomerular Filt Rate 95 ml/min (>60); GFR (African American) 115 ML/MIN (>60); Globulin 3.3 g/dL (1.3-3.2); Glucose 126 mg/dl (74-100); Potassium 3.5 mmoL/L (3.5-5.1); Sodium 138 mmol/L (136-145); Total Protein,Serum 7.4 g/dl (6.3-8.2)
[2020-12-20 00:43] LABS: Lipase 166 U/L (23-300)
[2020-12-20 00:48] LABS: C-Reactive Protein 28.6 mg/L (0-4)
[2020-12-20 01:01] LABS: Procalcitonin 0.149 ng/mL (0.0-2.0)
[2020-12-20 01:11] LABS: Erythrocyte Sedimentation Rate 37 mm/hr (0-20); Troponin I < 0.01 ng/ml (0.00-0.034)
--- NOTE | 2020-12-20 01:50 | HMH.EDCP ---
ED Disposition Clinical Impression: Vasovagal episode Chest pain Qualifiers: Chest pain type: precordial pain Qualified Code(s): R07.2 - Precordial pain Disposition: Home, Self-Care Condition on Discharge: Good Instructions: DI for Chest Pain Additional Instructions: see pcp for close follow up Referrals: Diego Lange MD [Primary Care Provider] - - Critical Care Critical Care Time: No Attestation: On 12/20/20, the high probability of a clinically significant, sudden or life threatening deterioration of the following system(s) required my full and direct attention, intervention and personal management. The time I documented below is in addition to time spent performing reported procedures but includes the following listed in this critical care notation. Medical Decision Making - Medical Records Medical records reviewed: Yes: I reviewed the patient's medical records. - Aguilar Inquiry Pt receiving controlled substance: No Vital Signs: 12/20/20 00:21 12/20/20 03:50 12/20/20 04:20 Temperature 97.7 F 97.9 F Temperature Source Oral Oral Pulse Rate 75 Pulse Rate [Orthostatic Lying Left] 97 H Pulse Rate [Orthostatic Sitting Left] 99 H Pulse Rate [Orthostatic Standing Left] 99 H Pulse Rate [Right] 90 Respiratory Rate 18 20 Blood Pressure 133/78 Blood Pressure [Orthostatic Lying Right Arm] 119/62 Blood Pressure [Orthostatic Sitting Right Arm] 91/59 L Blood Pressure [Orthostatic Standing Right Arm] 106/55 L Blood Pressure [Right Arm] 130/72 Blood Pressure Mean [Right Arm] 91 02 Sat by Pulse Oximetry 93 L Oxygen Delivery Method Room Air - Lab Data Lab results reviewed: Yes: I reviewed the patient's lab results. Lab Results 12/20/20 00:21: WBC 10.0, RBC 4.45 L, Hgb 12.2 L, Hct 40.2 L, MCV 90.4, MCH 27.3, MCHC 30.2 L, RDW 17.2, Plt Count 374, MPV 8.1, Neut % (Auto) 70.0, Lymph % (Auto) 18.1, [place] % (Auto) 5.5, Eos % (Auto) 6.0, Baso % (Auto) 0.4, Neut # (Auto) 7.0, Lymph # (Auto) 1.8, [place] # (Auto) 0.6, Eos # (Auto) 0.6 H, Baso # (Auto) 0.0, ESR 37 H 12/20/20 00:21: Sodium 138, Potassium 3.5, Chloride 111 H, Carbon Dioxide 16 L, Anion Gap 14.5, BUN 10, Creatinine 0.80, Estimated Creat Clear 92, Estimated GFR 95, Est GFR ( Amer) 115, Glucose 126 H, Calcium 9.0, Total Bilirubin 0.6, AST 35, ALT 20 D, Alkaline Phosphatase 82, Troponin I < 0.01, C-Reactive Protein 28.6 H D, Total Protein 7.4, Albumin 4.1, Globulin 3.3 H, Albumin/Globulin Ratio 1.2, Amylase 70, Procalcitonin 0.149 12/20/20 00:21: Lipase 166 12/20/20 00:35: SARS-CoV-2 (PCR) Not detected, Influenza A Untype (PCR) Not detected, Influenza Type B (PCR) Not detected 12/20/20 03:35: Troponin I < 0.01 Result diagrams: 12/20/20 00:21 12/20/20 00:21 Orders (Tests/Meds): ED MEDICATIONS Generic Name Dose Route Start Last Admin Trade Name Freq PRN Reason Stop Dose Admin Sodium Chloride 1,000 mls @ 999 mls/hr 12/20/20 00:30 12/20/20 00:32 Sod Chlor 0.9% 1000ml Bag IV 12/20/20 01:30 999 mls/hr .Q1H1M JUICE Administration Sodium Chloride 8 ml 12/20/20 00:26 Sodium Chloride 0.9% 10ml Vial IV 01/19/21 00:25 NEEDED PRN dilute pepcid Discontinued Medications Generic Name Dose Route Start Last Admin Trade Name Freq PRN Reason Stop Dose Admin Famotidine 20 mg 12/20/20 00:26 12/20/20 00:32 Famotidine 20mg/2ml Vial IV 12/20/20 00:27 20 mg ONCE ONE Administration Ketorolac Tromethamine 30 mg 12/20/20 00:26 12/20/20 00:32 Ketorolac 30mg/Ml Vial IV 12/20/20 00:27 30 mg ONCE ONE Administration Metoclopramide HCl 10 mg 12/20/20 00:26 12/20/20 00:32 Metoclopramide Hcl 10mg/2ml Vial IVP 12/20/20 00:27 10 mg ONCE ONE Administration Ondansetron HCl 4 mg 12/20/20 00:26 12/20/20 00:32 Ondansetron 4mg/2ml Vial IV 12/20/20 00:27 4 mg ONCE ONE Administration ORDERS Category Date Time Status Troponin I Q3H Lab 12/20/20 06:30 Ordered Urinalysis
[2020-12-20 03:50] VITALS: BP 106/55; BP 119/62; BP 91/59; PULSE 97; PULSE 99
[2020-12-20 04:17] LABS: Troponin I < 0.01 ng/ml (0.00-0.034)
[2020-12-20 04:20] VITALS: BP 133/78; PULSE 75; RESP 20; TEMP 36.6; O2SAT 97
== END 2020-12-20 05:15 | disposition home or self-care (01) ==
PROVIDERS: Emergency Provider Emergency Medicine; PCP Family Medicine
DX: R55 Syncope and collapse (principal); R07.2 Precordial pain; Z87.891 Personal history of nicotine dependence
CPT/HCPCS: 70450; 71045; 72125; 72170; 74177; 80053; 82150; 83690; 84145; 84484; 85025; 85651; 86140; 93005; 96365; 96375; 99283; C9803; J2405; U0003; U0005

== ENCOUNTER → 2020-12-27 09:06 | Outpatient (CLI) | payer MEDICARE, SELFPAY ==
--- NOTE | 2020-12-27 09:09 | US_ITS ---
PROCEDURE: US GALLBLADDER CLINICAL INDICATION: RUQ ABD PAIN COMPARISON: CT CT ABDOMEN PELVIS W CON from 12/20/2020 FINDINGS: Pancreas: Unremarkable/Not well seen Liver: Diffuse increased echogenicity of the liver with poor through transmission of sound consistent with hepatic steatosis. No focal liver lesion demonstrated. There is appropriate direction of blood flow within non dilated portal vein.There is appropriate direction of blood flow within a non dilated portal vein. Right kidney: Unremarkable appearing. No hydronephrosis. Gallbladder: No stones are evident. There is no gallbladder wall thickening. Common duct is normal in diameter. IMPRESSION: Fatty liver otherwise negative Dictated by: Lino Stevenson MD 12/27/2020 15:52 Lino Stevenson MD in [place] 12/27/2020 15:52
== END ==
PROVIDERS: PCP Family Medicine; Visit Provider Family Medicine
DX: R10.11 Right upper quadrant pain (principal)
CPT/HCPCS: 76705

== ENCOUNTER → 2021-01-09 06:44 | Outpatient (CLI) | payer MEDICARE, SELFPAY ==
--- NOTE | 2021-01-09 06:53 | NM_ITS ---
PROCEDURE: NM HEPATOBILIARY WO PHARM CLINICAL INDICATION: RUQ PAIN COMPARISON: CT CT ABDOMEN PELVIS W CON from 12/20/2020 US US GALLBLADDER from 12/27/2020 FINDINGS: 8.42 millicurie of Choletec was injected. There is normal uptake of radiotracer by the liver. Common duct is seen to opacify at 10 minutes. Radiotracer is seen refluxing into the stomach at 15 minutes. Gallbladder uptake of radiotracer is identified at 35 minutes. Gallbladder ejection fraction after administration of cholecystokinin is 55 percent. IMPRESSION: Normal HIDA scan with normal gallbladder ejection fraction. Dictated by: Rani Shannon MD 01/09/2021 10:32 Rani Shannon MD in [place] 01/09/2021 10:32
--- NOTE | 2021-01-09 07:08 | HMH.ITSHM ---
Current Home Medications as stated by this patient Abelino Morales or insurance healthcare representative. []ALLOPURINOL TICAGRELOR PRAVASTATIN POTASSIUM OMEPRAZOLE METOPROLOL LORATADINE LOPERAMIDE LEVOTHYROXINE ISOSORBIDE FLUTICASONE EZEIMIBE DULOXETINE DEXTRAN BUMETANIDE ASA ALFUZOSIN ALBUTEROL
== END ==
PROVIDERS: PCP Family Medicine; Visit Provider Family Medicine
DX: R10.11 Right upper quadrant pain (principal)
CPT/HCPCS: 78226; A9537

== ENCOUNTER 2021-10-13 13:55 | Emergency (ER) | payer MEDICARE, SELFPAY ==
--- NOTE | 2021-10-13 13:50 | ECG_ITS ---
APPROVED REPORT Exam: Resting ECG HR:74 bpm ECG Measurements Heart Rate 74 AXES TX 183 P 66 QRSd 86 QRS 47 QT 381 T 235 QTc [address] DEVIATION AND MODERATE T-WAVE ABNORMALITY, CONSIDER ANTEROLATERAL ISCHEMIA [-0.1+ mV T-WAVE IN V3-V6] ST DEVIATION AND MODERATE T-WAVE ABNORMALITY, CONSIDER INFERIOR ISCHEMIA [-0.1+ mV T-WAVE IN II/aVF] ABNORMAL ECG UNCONFIRMED REPORT Electronically signed by : Diego Griffin MD 10/14/2021 20:37:46
[2021-10-13 13:56] VITALS: BP 181/96; PULSE 76; RESP 20; TEMP 37.1; O2SAT 96; BMI 34.1
--- NOTE | 2021-10-13 13:57 | XR_ITS ---
PROCEDURE INFORMATION: Exam: XR Chest Exam date and time: 10/13/2021 1:55 PM Age: 76 years old Clinical indication: Sternal or substernal pain; Prior surgery; Surgery date: 6+ months; Surgery type: Cardiac stents; Patient HX: Chest and left arm pain. ; Additional info: Lt arm pain; Chest pain TECHNIQUE: Imaging protocol: Radiologic exam of the chest. Views: 2 views. COMPARISON: CR XR CHEST PORTABLE 12/20/2020 1:44 AM FINDINGS: Lungs: Mild opacities in the lung bases may represent atelectasis or pneumonia.. Pleural spaces: Unremarkable. No pleural effusion. No pneumothorax. Heart/Mediastinum: Cardiomegaly Bones/joints: Unremarkable. IMPRESSION: Mild opacities in the lung bases may represent atelectasis or pneumonia..
[2021-10-13 14:00] VITALS: BP 181/96; PULSE 74; RESP 16; O2SAT 94
--- NOTE | 2021-10-13 14:02 | PC.NURSE ---
XR AT BEDSIDE
[2021-10-13 14:03] VITALS: BMI 34.1
--- NOTE | 2021-10-13 14:07 | PC.NURSE ---
pt returned from radiology via
[2021-10-13 14:08] LABS: Basophils # 0.1 K/mm3 (0-0.2); Basophils % 1.2 % (0.1-2.0); Eosinophils # 0.5 K/mm3 (0.0-0.4); Eosinophils % 6.1 % (0.1-12.0); Hematocrit 40.7 % (42.0-52.0); Hemoglobin 12.7 g/dL (14.1-18.0); Lymphocytes # 1.6 K/mm3 (0.7-4.5); Lymphocytes % 19.3 % (10-50); Mean Corpuscular HGB Conc 31.2 g/dL (31.8-35.4); Mean Corpuscular Hemoglobin 27.9 pg (27.0-31.2); Mean Corpuscular Volume 89.5 fl (80-94); Mean Platelet Volume 8.1 fl (7.4-10.4); Monocytes # 0.6 K/mm3 (0.1-1.0); Monocytes % 6.8 % (1.7-9.3); Neutrophils # 5.7 K/mm3 (1.8-7.8); Neutrophils % 66.7 % (37.0-80.0); Platelet Count 392 K/mm3 (142-424); Red Blood Count 4.54 M/mm3 (4.60-6.20); White Blood Count 8.5 K/mm3 (4.8-10.8)
[2021-10-13 14:12] LABS: Chloride 105 mmol/L (98-107); Potassium 3.8 mmoL/L (3.5-5.1); Sodium 141 mmol/L (136-145)
[2021-10-13 14:15] LABS: Blood Urea Nitrogen 17 mg/dl (9-20); Creatinine Clearance Estimated 91 mL/min (50-200); Estimated Glomerular Filt Rate 73 ml/min (>60); GFR (African American) 88 ML/MIN (>60)
[2021-10-13 14:16] LABS: Anion Gap 10.8 mEq/L (5-15); Calcium 9.3 mg/dl (8.4-10.2); Carbon Dioxide 29 mmol/L (22.0-30.0); Glucose 136 mg/dl (74-100)
--- NOTE | 2021-10-13 14:17 | PC.NURSE ---
1413 ED MD AT BEDSIDE FOR EVALUATION
--- NOTE | 2021-10-13 14:27 | HMH.EDCP ---
ED Disposition Clinical Impression: Left shoulder pain Qualifiers: Chronicity: acute Qualified Code(s): M25.512 - Pain in left shoulder Disposition: Home, Self-Care Condition on Discharge: Good Additional Instructions: Follow-up with physical therapy, they will call you to schedule an appointment for your shoulder pain, likely related to neck pain or osteoarthritis. Tylenol and ibuprofen for pain control, lidocaine patches will also help. Please return if you have shortness of breath, chest pain, or any other concerning symptoms. Prescriptions: Lidocaine [Lidocaine 5% patch] 1 patch TP AM PRN #14 patch PRN Reason: Breakthru Moderate Pain Transmission Status: Received by [id number] Referrals: Edu Lopez PT [Physical Therapist] - Provider,Referral, [Primary Care Provider] - - Critical Care Critical Care Time: No Attestation: On 10/13/21, the high probability of a clinically significant, sudden or life threatening deterioration of the following system(s) required my full and direct attention, intervention and personal management. The time I documented below is in addition to time spent performing reported procedures but includes the following listed in this critical care notation. Medical Decision Making - Aguilar Inquiry Pt receiving controlled substance: No Vital Signs: 10/13/21 13:56 10/13/21 14:00 10/13/21 14:30 Temperature 98.7 F Temperature Source Oral Pulse Rate 74 74 Pulse Rate [Radial] 76 Respiratory Rate 20 16 16 Blood Pressure 181/96 H 159/79 H Blood Pressure [Left Arm] 181/96 H Blood Pressure Mean 111 107 Blood Pressure Mean [Left Arm] 124 Blood Pressure Source [Left Arm] Automatic Cuff Blood Pressure Position [Left Arm] Sitting 02 Sat by Pulse Oximetry 96 94 L 94 L Oxygen Delivery Method Room Air 10/13/21 16:37 Temperature 98.3 F Temperature Source Pulse Rate 74 Pulse Rate [Radial] Respiratory Rate 16 Blood Pressure 158/77 H Blood Pressure [Left Arm] Blood Pressure Mean Blood Pressure Mean [Left Arm] Blood Pressure Source [Left Arm] Blood Pressure Position [Left Arm] 02 Sat by Pulse Oximetry Oxygen Delivery Method - Lab Data Lab Results 10/13/21 14:00: WBC 8.5, RBC 4.54 L, Hgb 12.7 L, Hct 40.7 L, MCV 89.5, MCH 27.9, MCHC 31.2 L, RDW 17.0, Plt Count 392, MPV 8.1, Neut % (Auto) 66.7, Lymph % (Auto) 19.3, [place] % (Auto) 6.8, Eos % (Auto) 6.1, Baso % (Auto) 1.2, Neut # (Auto) 5.7, Lymph # (Auto) 1.6, [place] # (Auto) 0.6, Eos # (Auto) 0.5 H, Baso # (Auto) 0.1 10/13/21 14:00: Sodium 141, Potassium 3.8, Chloride 105, Carbon Dioxide 29, Anion Gap 10.8, BUN 17, Creatinine 1.00, Estimated Creat Clear 91, Estimated GFR 73, Est GFR ( Amer) 88, Glucose 136 H, Calcium 9.3, Troponin I < 0.01 Result diagrams: 10/13/21 14:00 10/13/21 14:00 Orders (Tests/Meds): ED MEDICATIONS Discontinued Medications Generic Name Dose Route Start Last Admin Trade Name Freq PRN Reason Stop Dose Admin Hydrocodone Bitart/Acetaminophen 1 tab 10/13/21 14:29 10/13/21 14:44 Hydrocodone/Apap 5/325 Mg Tablet PO 10/13/21 14:30 1 tab ONCE ONE Administration Lidocaine 1 each 10/13/21 15:45 10/13/21 15:50 Lidocaine 5% Transdermal Patch TP 11/12/21 15:44 1 each Q24H JUICE Administration ORDERS Category Date Time Status Troponin I Q3H Lab 10/13/21 17:00 Ordered Troponin I Q3H Lab 10/13/21 20:00 Ordered - ECG Data Tracing #1 Normal Sinus Rhythm: Yes ECG compared to prior tracings: there are no significant changes Medical Decision Narrative: This is a 76-year-old male with history of CAD status post stenting, right carotid endarterectomy, COPD, PAD who is presenting with left shoulder pain. On arrival, patient hemodynamically stable, alert, oriented, moving all extremities spontaneously, pupils equal and reactive to light, GCS 15. Physical exam significant for well-appearing male no acute distress. Smells of tobacc
[2021-10-13 14:28] LABS: Troponin I < 0.01 ng/ml (0.00-0.034)
[2021-10-13 14:30] VITALS: BP 159/79; PULSE 74; RESP 16; O2SAT 94
--- NOTE | 2021-10-13 14:47 | PC.NURSE ---
PT MEDICATED AT THIS TIME PER EMAR, WARM BLANKET OFFERED. PT DECLINES. NO NEEDS AT THIS TIME
--- NOTE | 2021-10-13 14:56 | PC.NURSE ---
ED MD AT BEDSIDE SPEAKING WITH PT AND FAMILY, POC DISCUSSED
--- NOTE | 2021-10-13 15:02 | XR_ITS ---
PROCEDURE INFORMATION: Exam: XR Left Shoulder Exam date and time: 10/13/2021 3:07 PM Age: 76 years old Clinical indication: Pain; Shoulder; Left; Additional info: L shoulder stabbing pain posteriorly. TECHNIQUE: Imaging protocol: Radiologic exam of the Left shoulder. Views: 2 or more views. COMPARISON: CR XR CHEST 2V 10/13/2021 1:55 PM FINDINGS: Bones/joints: Generalized osteopenia. Soft tissues: Normal. IMPRESSION: No evidence of acute osseous injury.
--- NOTE | 2021-10-13 15:10 | PC.NURSE ---
PT RESTING, FAMILY AT BEDSIDE. DENIES NEEDS AT THIS TIME
--- NOTE | 2021-10-13 15:13 | PC.NURSE ---
PT TO XR PER WC AT THIS TIME
--- NOTE | 2021-10-13 15:19 | PC.NURSE ---
PT RETURNED FROM XR
--- NOTE | 2021-10-13 15:53 | PC.NURSE ---
PT RESTING WITH EYES CLOSED, AWAKENS EASILY. LIDOCAINE PATCH APPLIED TO LEFT UPPER SHOULDER. PT WITHOUT NEEDS AT THIS TIME. FAMILY AT BEDSIDE
--- NOTE | 2021-10-13 16:26 | PC.NURSE ---
ED MD AT BEDSIDE TO DISCUSS DISCHARGE WITH PT
[2021-10-13 16:37] VITALS: BP 158/77; PULSE 74; RESP 16; TEMP 36.8; O2SAT 95
== END 2021-10-13 16:38 | disposition home or self-care (01) ==
PROVIDERS: Emergency Provider Emergency Medicine
DX: M25.512 Pain in left shoulder (principal); I25.10 Atherosclerotic heart disease of native coronary artery without angina pectoris; I65.29 Occlusion and stenosis of unspecified carotid artery; J44.9 Chronic obstructive pulmonary disease, unspecified; I73.9 Peripheral vascular disease, unspecified; Z95.818 Presence of other cardiac implants and grafts; D64.9 Anemia, unspecified
CPT/HCPCS: 71046; 73030; 80048; 84484; 85025; 93005; 99285

== ENCOUNTER → 2022-02-05 12:50 | Outpatient (CLI) | payer MEDICARE, SELFPAY ==
--- NOTE | 2022-02-05 12:50 | MR_ITS ---
FINAL REPORT CLINICAL HISTORY: back pain lower back pain with left leg pain years best images possible due to patients shoulder was hurting and had a hard time holding still FINDINGS: Multiplanar MR imaging of the lumbar spine was performed without contrast. On the sagittal T2-weighted images, disc degeneration is seen throughout. The vertebral alignment is normal. There is no evidence of fracture. No bony mass is identified. The conus has an unremarkable appearance. No significant canal stenosis is identified. T12-L1: An annular bulge is present. There is no significant canal stenosis or neural foraminal narrowing. L1-2: There is no significant canal stenosis or neural foraminal narrowing. L2-3: An annular bulge is present. There is no significant canal stenosis or neural foraminal narrowing. L3-4: There is an annular bulge and facet arthropathy. There is mild bilateral neural foraminal narrowing. L4-5: There is an annular bulge with a small central disc protrusion. There is mild right neural foraminal narrowing. L5-S1: There is partial lumbarization of S1. There is an annular bulge and facet arthropathy. There is mild left neural foraminal narrowing. IMPRESSION: Multilevel degenerative disc disease with areas of neural foraminal narrowing. Small central disc protrusion at L4-L5 without significant central canal stenosis. Reviewed, Interpreted and Dictated by Benjamín Renee III, MD Transcribed by Quinton Hernandez Authenticated and [facility]
== END ==
PROVIDERS: PCP Emergency Medicine; Visit Provider Emergency Medicine
DX: M54.9 Dorsalgia, unspecified (principal); M54.50 Low back pain, unspecified
CPT/HCPCS: 72148; 76376

== ENCOUNTER → 2022-02-27 13:52 | Outpatient (POV) | payer MEDICARE, SELFPAY ==
[2022-02-27 13:55] VITALS: BP 162/93; PULSE 78; RESP 18; O2SAT 96; BMI 33.5
--- NOTE | 2022-02-27 14:14 | EXP.PAIN.OV ---
HPI Data of Consult Patient: new to practice Consult date: 02/27/22 Requesting Physician: Mariama Sol APRN Primary Care Provider: Diego Griffin MD Consult Narrative Reason for consult: Low back pain History of present illness: Mr. Morales is a 77 year old male who presents today as a new patient. He is a referral from Dr. Neal's office. Today he rates his pain a 7 out of 10. Patient states his pain is all in his low back as well as his left side of his neck into his left shoulder. Patient denies any specific trauma or injury. He states his neck and shoulder pain has just started being an issue over the last couple of months however his back pain is been going on for years and he believes is from an old war injury. Patient does state he does have occasional radiating symptoms into his lower extremities with the right side being the predominant 1. Patient states this is a aching, throbbing, sharp sensation that is worse with increased activity. Patient states that he cannot tolerate evening applying his seatbelt due to the sharp shooting pains that occur in his left shoulder. Patient has had some imaging of his shoulder however he is unaware of the results. Patient states he uses [id number] Tylenol and Biofreeze cream to help provide relief. Patient states this does an okay job and is currently in physical therapy. Patient states his first visit was today. Patient does state that he has tried heat and ice and heat works better. Patient does have a cardiac history and cannot tolerate any NSAIDs. Patient is not interested in any injections or muscle relaxers. Patient is not on any scheduled medications. His Aguilar is [phone]. Its been reviewed and appropriate. CC: Mariama Sol APRN [facility] Disclaimer: The information contained in this section may have been updated after the patient was seen, as this information can be updated by other users. Social History Smoking Status: Former smoker alcohol intake: never current occupational status: retired Travel in the last 8 weeks: None Review of Systems Review of Systems Review of systems:: pertinent systems reviewed and negative unless documented below Review of systems (narrative): Review of Systems: General: No recent weight changes, no fever, no sleep disturbances Respiratory: No cough, no shortness of air, no recurring pulmonary infections Cardiovascular/peripheral vascular: No chest pain, no palpitations, no edema, no shortness of breath Gastrointestinal: No new onset incontinence, normal bowel movements reported Genitourinary: No new onset incontinence Musculoskeletal: Low back pain Psychiatric: [Normal mood/affect] Neurological: [Denies weakness in extremities], [denies balance issues] Meds Home Medications and Allergies Home Medications Medication Instructions Recorded Confirmed Type allopurinol 300 mg tablet 300 mg PO DAILY gout 08/03/17 01/27/22 History fluticasone propionate 50 2 spray intranasal DAILY Allergy 08/03/17 01/27/22 History mcg/actuation nasal symptoms spray,suspension (Flonase Allergy Relief) isosorbide mononitrate 60 mg 120 mg PO DAILY Hypertension 08/03/17 01/27/22 History tablet,extended release 24 hr levothyroxine 112 mcg tablet 112 mcg PO DAILY hypothyroid 08/03/17 01/27/22 History omeprazole 20 mg capsule,delayed 20 mg PO DAILY Reflux/Acid reflux 08/03/17 01/27/22 History release pravastatin 40 mg tablet 40 mg PO DAILY Cholesterol 08/03/17 01/27/22 History (Pravachol) duloxetine 30 mg capsule,delayed 30 mg PO DAILY Depression 12/29/19 01/27/22 History release potassium chloride 10 mEq 20 meq PO TID Diet supplement 12/29/19 01/27/22 History tablet,extended release(part/cryst) albuterol sulfate 90 mcg/actuation 2 puff inhalation Q4HP PRN 11/30/20 01/27/22 Rx aerosol inhaler Wheezing #1 ea aspirin 81 mg chewable tablet 81 mg PO DAILY CAD
== END ==
PROVIDERS: PCP Internal Medicine Adolescent Medicine; Visit Provider Nurse Practitioner Family
DX: M51.16 Intervertebral disc disorders with radiculopathy, lumbar region (principal); M47.26 Other spondylosis with radiculopathy, lumbar region; M25.512 Pain in left shoulder
CPT/HCPCS: 99202; G0463

== ENCOUNTER → 2022-03-14 10:17 | Outpatient (CLI) | payer MEDICARE, SELFPAY ==
--- NOTE | 2022-03-14 10:22 | CT_ITS ---
FINAL REPORT TECHNIQUE: Axial images of the left shoulder was performed by computed tomography. Sagittal and coronal reformatted images were obtained and reviewed. This study was performed with techniques to keep radiation doses as low as reasonably achievable (ALARA). Individualized dose reduction techniques using automated exposure control or adjustment of mA and/or kV according to the patient's size were employed. CLINICAL HISTORY: LT ANTERIOR SHOULDER PAIN THAT RADIATES INTO NECK AND ARM FINDINGS: Mild degenerative changes are present. There is no evidence of fracture or dislocation. No bony mass is identified. The musculature is intact. There is no joint effusion. IMPRESSION: Mild degenerative change without acute bony abnormality. Reviewed, Interpreted and Dictated by Benjamín Renee III, MD Transcribed by Josephine Hunter Authenticated and [facility]
== END ==
PROVIDERS: PCP Internal Medicine Adolescent Medicine; Visit Provider Nurse Practitioner Family
DX: M25.512 Pain in left shoulder (principal)
CPT/HCPCS: 73200

== ENCOUNTER 2022-04-08 10:00 | Outpatient (RCR) | payer MEDICARE, SELFPAY ==
--- NOTE | 2022-02-24 10:46 | HMH.PTOPEV ---
PT Outpatient Evaluation Rehab PT Outpatient Evaluation Start: 02/24/22 10:34 Freq: Status: Active Protocol: Document 02/24/22 10:34 CT (Rec: 02/24/22 10:46 CT [id number]) E-signed By Edu Lopez, PT Outpatient Therapy Subjective History Subjective History Pt reports h/o chronic LBP for multiple years, exacerbation reported over the last ~6 months. Pt reports no radicular s/s into LE's, however, reports limitations in flexibility causes pain with prolonged sitting, standing, and walking. Chief Complaint Pain,Spasms,Weakness Symptom Type Ache,Throb,Sharp,Dull Symptoms Relieved By Rest/Positioning,Prescription Meds Symptoms Aggravated By Standing,Bending/Stooping, Physical Activity,Walking Prior Functional Limitations Housework,Standing,Walking, Bending/Stooping Current Functional Limitations Housework,Standing,Walking, Bending/Stooping Symptom Description Constant but Variable Level of pain today (0-10) 7 Pain scale - at its best (0-10) 7 Pain scale - at its worst (0-10) 10 Lumbopelvic Eval Posture Thoracic Spine Posture Standing Position Flattened Lumbar Spine Posture Standing Position Flattened Assistive device Assistive Devices None / NA Gait Observation General Gait Pattern Observation Antalgic Gait,Shuffling Step Palapation tenderness bilateral lumbar spinal tenderness Yes: 3/4 paraspinal tenderness Yes: 3/4 buttock tenderness Yes: 3/4 Lumbar/Sacral Palpation Findings Tenderness Accessory Movement T-spine Vertebrae Accessory Movements Central P/A [place] that Elicit Symptoms T10 bilateral T11 bilateral T12 bilateral L-spine Vertebrae Accessory Movements Central P/A [place] that Elicit Symptoms L2 bilateral L3 bilateral L4 bilateral L5 bilateral Range of Motion Lumbar Spine Active Flexion Range of 0-10 Motion (degrees) Lumbar Spine Active Extension Range of 0-5 Motion (degrees) Left Lumbar Spine Lateral Flexion Active 0-10 Range of Motion (degrees) Right Lumbar Spine Lateral Flexion 0-10 Active Range of Motion (degrees) Lumbar Spine ROM Limitations Soft Tissue Tightness,Pain Manual Muscle Test Bilateral Knee Extension Strength Gr
--- NOTE | 2022-03-26 11:19 | HMH.RHREAS ---
Rehab Reassessment Rehab OP Re-assessment Start: 03/26/22 11:11 Freq: Status: Active Protocol: Document 03/26/22 11:11 CT (Rec: 03/26/22 11:19 CT [id number]) E-signed By Edu Lopez, PT Rehab Re-assessment Subjective Subjective Pt reports significant improvements in LBP, LE strength, and overall function since I eval. Pt reports 3/10 LBP on VAS this am, and feels 80% better since I eval Objective Objective Notes AROM: LUMBAR SPINE FLX 0-40, EXT 0-25, RIGHT SB 0-30, LEFT SB 0-15 MMT: MARILEE. HIP FLX 4-4+/5, MARILEE. KNEE EXT 5/5, MARILEE. KNEE FLX 4 +-5/5 TTP: MARILEE. LUMBAR PARASPINALS 0 -1/4 Assessment Progress Assessment Progressing as Expected Assessment Notes SIGNIFICANT IMPROVEMENT IN ROM , STRENGTH, AND TTP Patient goals met STG'S 11/22 LTG'S 09/22 Goals Not Met LTG'S 05/23 Plan Plan Pt to continue w/skilled P.T. to make further improvements in ROM, strength, and TTP to allow for optimal function Frequency of Therapy 1-2x/wk Duration of therapy 3-4wks Time and Billing Re-Eval Time 12 Re-Eval Billing Units 1 PHYSICIAN CERTIFICATION: I certify the specified therapy services for Abelino Morales are required, authorized, and reviewed every 30 days.
== END 2022-04-08 10:05 | disposition home or self-care (01) ==
LOC: PT 10:00
PROVIDERS: PCP Emergency Medicine; Visit Provider Emergency Medicine
DX: M51.36 Other intervertebral disc degeneration, lumbar region (principal)
CPT/HCPCS: 97010; 97014; 97110; 97140; 97163; 97164; G0283

== ENCOUNTER 2022-04-15 15:00 | Outpatient (RCR) | payer MEDICARE, SELFPAY ==
--- NOTE | 2022-03-14 08:50 | HMH.OTOPEV ---
OT Inpatient Evaluation Rehab OT Outpatient Eval Start: 03/14/22 08:35 Freq: Status: Active Protocol: Document 03/14/22 08:36 FLORENTINPATRICE (Rec: 03/14/22 08:45 FLORENTINPATRICE [id number]) E-signed By Cecy Garza, OT Outpatient Therapy Subjective History Subjective History 77 year old male referred to skilled OP OT services for left shoulder pain. Patient stated to have pain in the right shoulder for >1 year. Patient stated the pain has caused difficulty with completing simple ADL tasks such as drsg, bathing and buckling seat belt. X-ray to left shoulder completed on with no findings. However Patient will be having another x-ray completed again this year. Chief Complaint Pain,Weakness Symptom Type Ache Symptoms Relieved By Nothing Symptoms Aggravated By Physical Activity Prior Functional Limitations None Current Functional Limitations Reaching,Sleeping,Recreation Activity Symptom Description Constant and Continuous Level of pain today (0-10) 5 Pain scale - at its best (0-10) 5 Pain scale - at its worst (0-10) 10 Shoulder/Elbow Eval Shoulder Objective Measurements Shoulder ROM Left Shoulder Abduction Active Range of 50 Motion (degrees) Shoulder Flexion Active Range of Motion 76 (degrees) Query Text: Shoulder External Rotation Active Range 0 of Motion (degrees) Shoulder Internal Rotation Active Range 0 of Motion (degrees) pain with active ROM shoulder exam left standard Shoulder MMT Shoulder Abduction Strength Grade 3- Fair- Shoulder Extension Strength Grade 3- Fair- Shoulder Flexion Strength Grade 3- Fair- Shoulder Horizontal Abduction Strength 3- Fair- Grade Shoulder Horizontal Adduction Strength 3- Fair- Grade Infraspinatus/Teres Minor Strength Grade 3- Fair- Shoulder External Rotation Strength 3- Fair- Grade Shoulder Internal Rotation Strength 3- Fair- Grade Shoulder Special Tests impingement sign present shoulder exam left standard Shoulder Empty Can (Supraspinatus) Test Positive Left Shoulder Gimenez-Blu Impingement Positive Left Test Elbow Objective Measurements OT Outpat
== END 2022-04-15 15:05 | disposition home or self-care (01) ==
LOC: OT 15:00
PROVIDERS: PCP Internal Medicine Adolescent Medicine; Visit Provider Emergency Medicine
DX: M25.512 Pain in left shoulder (principal)
CPT/HCPCS: 97010; 97014; 97035; 97110; 97140; 97165; 97530; G0283

== ENCOUNTER → 2022-07-21 09:19 | Outpatient (CLI) | payer MEDICARE, SELFPAY ==
[2022-07-21 11:04] LABS: Potassium 4.7 mmoL/L (3.5-5.1)
== END ==
PROVIDERS: Nurse Practitioner Family; PCP Family Medicine; Visit Provider Family Medicine
DX: E87.5 Hyperkalemia (principal)
CPT/HCPCS: 36415; 84132

== ENCOUNTER 2022-08-16 03:57 | Emergency (ER) | payer MEDICARE, SELFPAY ==
[2022-08-16] VITALS (10 sets, daily range): BP systolic 121–176; BP diastolic 58–97; PULSE 67–78; RESP 16–22; TEMP 36.6–37.3; O2SAT 88–98; BMI 33.2
--- NOTE | 2022-08-16 04:08 | ECG_ITS ---
APPROVED REPORT Exam: Resting ECG HR:73 bpm ECG Measurements Heart Rate 73 AXES CO 198 P 70 QRSd 88 QRS 44 QT 411 T -50 QTc [address] DEVIATION AND MODERATE T-WAVE ABNORMALITY, CONSIDER LATERAL ISCHEMIA [-0.1+ mV T-WAVE IN I/aVL/V5/V6] ST DEVIATION AND MODERATE T-WAVE ABNORMALITY, CONSIDER INFERIOR ISCHEMIA [-0.1+ mV T-WAVE IN II/aVF] ABNORMAL ECG UNCONFIRMED REPORT Electronically signed by : Diego Griffin MD 08/16/2022 06:58:52
--- NOTE | 2022-08-16 04:17 | XR_ITS ---
PROCEDURE INFORMATION: Exam: XR Chest Exam date and time: 08/16/2022 4:21 AM Age: 77 years old Clinical indication: Other: Near syncope TECHNIQUE: Imaging protocol: Radiologic exam of the chest. Views: 1 view. COMPARISON: CR XR CHEST 2V 10/13/2021 1:55 PM FINDINGS: Lungs: Unremarkable. No consolidation. Pleural spaces: Unremarkable. No pleural effusion. No pneumothorax. Heart/Mediastinum: Moderate cardiomegaly. Bones/joints: Unremarkable. IMPRESSION: No acute findings. Moderate cardiomegaly.
[2022-08-16 04:29] LABS: POC Glucose,Bedside 111 (70-110)
--- NOTE | 2022-08-16 04:45 | HMH.EDGENADL ---
Discharge Plan Disposition Patient Disposition: Home, Self-Care Condition: Good Chief Complaint: Dizziness Prescriptions Prescriptions: No Action Zyrtec 10 mg capsule 10 mg PO DAILY PRN (Reason: ALLERGIES) clopidogrel [Plavix] 75 mg tablet 75 mg PO DAILY losartan 25 mg tablet 25 mg PO DAILY colestipol 1 gram tablet 1 g PO BID loperamide 2 mg tablet 2 mg PO BID PRN (Reason: BOWELS) levothyroxine 125 mcg capsule 125 mcg PO DAILY eplerenone 25 mg tablet 25 mg PO DAILY allopurinol 300 MG tablet 300 mg PO DAILY fluticasone propionate [Flonase Allergy Relief] 9.9 ML spray,suspension 2 spray intranasal DAILY pravastatin [Pravachol] 40 MG tablet 40 mg PO DAILY isosorbide mononitrate 60 MG tablet extended release 24 hr 120 mg PO DAILY omeprazole 20 MG capsule,delayed release(DR/EC) 20 mg PO DAILY levothyroxine 112 MCG tablet 112 mcg PO DAILY potassium chloride 10 MEQ tablet,ER particles/crystals 20 meq PO TID duloxetine 30 MG capsule,delayed release(DR/EC) 30 mg PO DAILY metoprolol succinate 100 MG tablet extended release 24 hr 100 mg PO DAILY aspirin 81 MG tablet,chewable 81 mg PO DAILY ezetimibe 10 MG tablet 10 mg PO DAILY albuterol sulfate 8.5 GM HFA aerosol inhaler 2 puff inhalation Q4HP PRN (Reason: Wheezing) Qty: 1 0RF Referrals Follow up/Referrals: Javier Fletcher MD [Primary Care Provider] - See instructions Clinical Impressions Clinical Impression: Dizziness Discharge ED Provider: Agustin Presley General Adult HPI General Chief complaint: Dizziness Stated complaint: Dizziness,head spinning Time Seen by Provider: 08/16/22 04:15 Mode of Arrival: Wheelchair Source of Information: Patient Limitations: No Limitations Description of Symptoms (Recalled from ER Triage Doc. by RN): pt states he woke up to use the bathroom and when he got back to bed he started sweating, having n/v, and dizziness. pt states he felt like he was going to pass out. pt states he has had some sinus congestion the past few days. pt denies chest pain/tightness, SOA and dizziness at this time. History of Present Illness HPI narrative: 77yo M presents to the ER after an episode of dizziness. Reports he woke up to use the restroom. When he got back to bed he started sweating. He was nauseated and vomited once. Reports he was dizzy. Denies any shortness of breath but does report that he is having mild wheeze on his right side for the past day or so. Reports using all home medication as directed. Related Data Home Medications Medication Instructions Recorded Confirmed allopurinol 300 mg tablet 300 mg PO DAILY gout 08/03/17 02/27/22 fluticasone propionate 50 2 spray intranasal DAILY Allergy 08/03/17 02/27/22 mcg/actuation nasal symptoms spray,suspension (Flonase Allergy Relief) isosorbide mononitrate 60 mg 120 mg PO DAILY Hypertension 08/03/17 02/27/22 tablet,extended release 24 hr levothyroxine 112 mcg tablet 112 mcg PO DAILY hypothyroid 08/03/17 02/27/22 omeprazole 20 mg capsule,delayed 20 mg PO DAILY Reflux/Acid reflux 08/03/17 02/27/22 release pravastatin 40 mg tablet 40 mg PO DAILY Cholesterol 08/03/17 02/27/22 (Pravachol) duloxetine 30 mg capsule,delayed 30 mg PO DAILY Depression 12/29/19 02/27/22 release potassium chloride 10 mEq 20 meq PO TID Diet supplement 12/29/19 02/27/22 tablet,extended release(part/cryst) aspirin 81 mg chewable tablet 81 mg PO DAILY CAD 12/18/20 02/27/22 ezetimibe 10 mg tablet 10 mg PO DAILY . 12/18/20 02/27/22 metoprolol succinate 100 mg 100 mg PO DAILY htn 12/18/20 02/27/22 tablet,extended release 24 hr cetirizine 10 mg capsule (Zyrtec) 10 mg PO DAILY PRN ALLERGIES 01/27/22 02/27/22 clopidogrel 75 mg tablet (Plavix) 75 mg PO DAILY Blood thinner 01/27/22 02/27/22 colestipol 1 gram tablet 1 g PO BID Cholesterol 01/27/22 02/27/22 eplerenone 25 mg tablet 25 m
[2022-08-16 04:49] LABS: Basophils # 0.1 K/mm3 (0-0.2); Basophils % 0.7 % (0.1-2.0); Eosinophils # 0.4 K/mm3 (0.0-0.4); Eosinophils % 4.8 % (0.1-12.0); Hematocrit 40.6 % (42.0-52.0); Hemoglobin 12.5 g/dL (14.1-18.0); Lymphocytes # 1.6 K/mm3 (0.7-4.5); Lymphocytes % 17.7 % (10-50); Mean Corpuscular HGB Conc 30.8 g/dL (31.8-35.4); Mean Corpuscular Hemoglobin 26.6 pg (27.0-31.2); Mean Corpuscular Volume 86.4 fl (80-94); Mean Platelet Volume 7.9 fl (7.4-10.4); Monocytes # 0.8 K/mm3 (0.1-1.0); Monocytes % 8.6 % (1.7-9.3); Neutrophils % 68.1 % (37.0-80.0); Platelet Count 334 K/mm3 (142-424); Red Cell Distribution Width 18.8 % (11.5-17.5); White Blood Count 8.8 K/mm3 (4.8-10.8)
[2022-08-16 04:50] LABS: Coronavirus 19, PCR Not Detected (NotDetected); Influenza A, PCR Not Detected (NotDetected); Influenza B, PCR Not Detected (NotDetected)
[2022-08-16 04:50] LABS: Chloride 102 mmol/L (98-107); Potassium 3.4 mmoL/L (3.5-5.1); Sodium 138 mmol/L (136-145)
[2022-08-16 04:53] LABS: Alanine Aminotransferase 30 U/L (12-78); Albumin Level 3.8 g/dl (3.5-5.0); Albumin/Globulin Ratio 1.1 (1.1-1.8); Alkaline Phosphatase 129 U/L (38-126); Anion Gap 12.4 mEq/L (5-15); Aspartate Amino Transferase 46 U/L (17-59); Bilirubin,Total 0.6 mg/dl (0.2-1.3); Blood Urea Nitrogen 14 mg/dl (9-20); Carbon Dioxide 27 mmol/L (22.0-30.0); Creatinine Clearance Estimated 87 mL/min (50-200); Estimated Glomerular Filt Rate 94 ml/min (>60); GFR (African American) 114 ML/MIN (>60); Globulin 3.4 g/dL (1.3-3.2); Total Protein,Serum 7.2 g/dl (6.3-8.2)
--- NOTE | 2022-08-16 04:53 | CT_ITS ---
PROCEDURE INFORMATION: Exam: CT Head Without Contrast Exam date and time: 08/16/2022 5:03 AM Age: 77 years old Clinical indication: Dizziness TECHNIQUE: Imaging protocol: Computed tomography of the head without contrast. Radiation optimization: All CT scans at this facility use at least one of these dose optimization techniques: automated exposure control; mA and/or kV adjustment per patient size (includes targeted exams where dose is matched to clinical indication); or iterative reconstruction. REPORTING DATA: Count of CT and Cardiac NM exams in prior 12 months: This patient has received [address] and 0 known cardiac nuclear medicine studies in the 12 months prior to the current study. COMPARISON: CT HEAD/BRAIN WO CON 12/20/2020 1:21 AM FINDINGS: Brain: There is diffuse prominence of the cerebral sulci, cisterns, and ventricles consistent with atrophy. No intra or extra-axial fluid collections are noted. No mass or mass effect is seen. Periventricular white matter hypoattenuation is seen consistent with small vessel chronic ischemic changes. Cerebral ventricles: No ventriculomegaly. Paranasal sinuses: Visualized sinuses are unremarkable. No fluid levels. Mastoid air cells: Visualized mastoid air cells are well aerated. Bones/joints: Unremarkable. No acute fracture. Soft tissues: Unremarkable. IMPRESSION: No acute process noted.
[2022-08-16 04:54] LABS: Calcium 8.5 mg/dl (8.4-10.2); Glucose 119 mg/dl (74-100)
[2022-08-16 05:06] LABS: Troponin I < 0.01 ng/ml (0.00-0.034)
--- NOTE | 2022-08-16 06:04 | PC.NURSE ---
up to bathroom, unable to collect urine. ambulated approx 32 feet to bathroom and back to bed with standby assist. describes himself as just feeling lightheaded from being up. denies dyspnea, denies cp. denies n/v/d at t his time. discussed POC with son. son will go home (5 minutes away) and will return once we call him with final disposition
[2022-08-16 07:50] LABS: Troponin I < 0.01 ng/ml (0.00-0.034)
== END 2022-08-16 08:05 | disposition home or self-care (01) ==
PROVIDERS: Emergency Provider Family Medicine; PCP Family Medicine
DX: R42 Dizziness and giddiness (principal); R11.2 Nausea with vomiting, unspecified; I25.10 Atherosclerotic heart disease of native coronary artery without angina pectoris; I10 Essential (primary) hypertension; E03.9 Hypothyroidism, unspecified; E78.5 Hyperlipidemia, unspecified; K21.9 Gastro-esophageal reflux disease without esophagitis
CPT/HCPCS: 70450; 71045; 80053; 82962; 84484; 85025; 87636; 93005; 96361; 96374; 99285; C9803; J2405; U0003; U0005

== ENCOUNTER 2022-09-08 02:56 | Emergency (ER) | payer MEDICARE, SELFPAY ==
[2022-09-08] VITALS (10 sets, daily range): BP systolic 158–196; BP diastolic 75–100; PULSE 94–122; RESP 23–33; TEMP 36.7–36.8; O2SAT 70–96; BMI 32.8
--- NOTE | 2022-09-08 02:56 | PC.NURSE ---
Pt's room air sat is 70%. Called respiratory for ABG. Pt placed on 3LPM NC
--- NOTE | 2022-09-08 02:57 | ECG_ITS ---
APPROVED REPORT Exam: Resting ECG HR:95 bpm ECG Measurements Heart Rate 95 AXES KS 161 P 47 QRSd 87 QRS 42 QT 349 T 203 QTc 402 Conclusion SINUS RHYTHM NONSPECIFIC ST & T-WAVE ABNORMALITY ABNORMAL ECG UNCONFIRMED REPORT Electronically signed by : Diego Griffin MD 09/08/2022 21:26:45
--- NOTE | 2022-09-08 03:09 | XR_ITS ---
PROCEDURE INFORMATION: Exam: XR Chest Exam date and time: 09/08/2022 3:10 AM Age: 77 years old Clinical indication: Pain; Chest pressure; Additional info: SOA, R chest pain TECHNIQUE: Imaging protocol: Radiologic exam of the chest. Views: 1 view. COMPARISON: CR XR CHEST PORTABLE 08/16/2022 4:21 AM FINDINGS: Lungs: Reticular opacities are noted throughout the left lung, accentuated from prior, concerning for developing pneumonia or asymmetric edema. There is hazy opacity at the right lung base which appears similar to prior exam. Pleural spaces: No pleural effusion or pneumothorax. Heart/Mediastinum: Stable cardiomegaly. Bones/joints: Age appropriate. IMPRESSION: Increasing opacity noted throughout the left lung may reflect developing pneumonia or asymmetric edema. Hazy opacity at the right lung base is stable from prior.
--- NOTE | 2022-09-08 03:09 | CT_ITS ---
PROCEDURE INFORMATION: Exam: CTA Chest With Contrast Exam date and time: 09/08/2022 4:17 AM Age: 77 years old Clinical indication: Shortness of breath; Additional info: SOA, R chest pain w dyspnea, sudden TECHNIQUE: Imaging protocol: Computed tomographic angiography of the chest with contrast. Exam focused on the arteries. 3D rendering (Not supervised by radiologist): MIP and/or 3D reconstructed images were created by the technologist. Radiation optimization: All CT scans at this facility use at least one of these dose optimization techniques: automated exposure control; mA and/or kV adjustment per patient size (includes targeted exams where dose is matched to clinical indication); or iterative reconstruction. Contrast material: ISOVUE; Contrast volume: 70 ml; Contrast route: INTRAVENOUS (IV); REPORTING DATA: Count of CT and Cardiac NM exams in prior 12 months: This patient has received 2 known [address]s and 0 known cardiac nuclear medicine studies in the 12 months prior to the current study. COMPARISON: CT ANGIO CHEST PE PROTOCOL 10/05/2020 5:19 PM FINDINGS: Pulmonary arteries: Normal. No pulmonary emboli. Aorta: Normal caliber thoracic aorta with mild calcific plaque. Thyroid: Homogeneous thyroid. Lungs: Right infrahilar as ago esophageal recess node measures 1.3 cm short axis diameter. There are extensive reticular opacities throughout both lungs, left greater than right. Findings may reflect atypical pneumonia. There is a peripheral distribution which can be seen with eosinophilic pneumonia. Pleural spaces: No pleural fluid. No pneumothorax. Heart: Heart size is normal. Coronary arteries: Extensive coronary artery hyperdensity could be calcification and/or stent material. Lymph nodes: There has been interval increase in size of mediastinal lymph nodes. Bodily Injury Adjuster right paratracheal node measures 1.3 cm short axis diameter. Portacaval node measures 1.5 cm short axis diameter. No supraclavicular or axillary adenopathy. Several of the mediastinal lymph nodes are calcified. Diaphragm: Small sliding hiatal hernia. Liver: Liver configuration suggests early cirrhosis. Stomach and bowel: Postprandial stomach. Bones/joints: Unremarkable. No acute fracture. Soft tissues: Unremarkable. IMPRESSION: 1. No findings of acute pulmonary embolism. 2. Extensive reticular opacity noted throughout both lungs, left greater than right. Findings likely represent atypical pneumonia. Peripheral distribution can be seen with eosinophilic pneumonia. 3. Interval increase in size of mediastinal lymph nodes. At least 3 noncalcified nodes are considered pathologically enlarged. While findings may reflect recent or current infection, neoplasm is not excluded, and follow-up is recommended to document resolution. Consider chest CT 3 months after completion of medical therapy.
[2022-09-08 03:11] LABS: ABG Base Excess -4.7 mmol/L (-2.4-2.3); ABG HCO3 19.6 mmhg (22.0-26.0); ABG Oxygen Saturation 86 % (90-100); ABG PCO2 30.1 mmhg (35.0-45.0); ABG PH 7.43 mmol/L (7.35-7.45); ABG TCO2 20.5 mmhg (23-27)
[2022-09-08 03:12] LABS: ABG PO2 48.9 mmhg (80-100); Allen's Test Y; Oxygen 3 %; Source Right Radial
[2022-09-08 03:15] LABS: Coronavirus 19, PCR Not Detected (NotDetected); Influenza A, PCR Not Detected (NotDetected); Influenza B, PCR Not Detected (NotDetected)
[2022-09-08 03:17] LABS: Basophils # 0.1 K/mm3 (0-0.2); Basophils % 0.6 % (0.1-2.0); Eosinophils # 0.4 K/mm3 (0.0-0.4); Eosinophils % 2.8 % (0.1-12.0); Hematocrit 41.3 % (42.0-52.0); Hemoglobin 12.8 g/dL (14.1-18.0); Lymphocytes # 1.3 K/mm3 (0.7-4.5); Mean Corpuscular HGB Conc 31.1 g/dL (31.8-35.4); Mean Corpuscular Hemoglobin 26.9 pg (27.0-31.2); Mean Corpuscular Volume 86.5 fl (80-94); Mean Platelet Volume 7.7 fl (7.4-10.4); Monocytes # 0.7 K/mm3 (0.1-1.0); Neutrophils # 11.9 K/mm3 (1.8-7.8); Neutrophils % 82.6 % (37.0-80.0); Platelet Count 292 K/mm3 (142-424); Red Blood Count 4.77 M/mm3 (4.60-6.20); Red Cell Distribution Width 18.1 % (11.5-17.5); White Blood Count 14.4 K/mm3 (4.8-10.8)
--- NOTE | 2022-09-08 03:22 | PC.NURSE ---
Respiratory placed on Venti-mask 50%, sat steadily raised to 90%
[2022-09-08 03:26] LABS: Alanine Aminotransferase 43 U/L (12-78); Albumin Level 4.3 g/dl (3.5-5.0); Albumin/Globulin Ratio 1.3 (1.1-1.8); Alkaline Phosphatase 142 U/L (38-126); Aspartate Amino Transferase 66 U/L (17-59); Bilirubin,Total 0.6 mg/dl (0.2-1.3); Blood Urea Nitrogen 15 mg/dl (9-20); Calcium 8.3 mg/dl (8.4-10.2); Carbon Dioxide 22 mmol/L (22.0-30.0); Chloride 103 mmol/L (98-107); Creatinine Clearance Estimated 86 mL/min (50-200); Estimated Glomerular Filt Rate 82 ml/min (>60); GFR (African American) 100 ML/MIN (>60); Globulin 3.3 g/dL (1.3-3.2); Glucose 183 mg/dl (74-100); Lactic Acid 4.2 mmol/L (0.7-2.1); Sodium 141 mmol/L (136-145); Total Protein,Serum 7.6 g/dl (6.3-8.2)
--- NOTE | 2022-09-08 03:26 | PC.NURSE ---
Berna from lab reported Lactic 4.2
--- NOTE | 2022-09-08 03:28 | PC.NURSE ---
Potassium reported 3.0.
--- NOTE | 2022-09-08 03:29 | PC.NURSE ---
notified of critical lab values.
[2022-09-08 03:30] LABS: C-Reactive Protein 6.4 mg/L (0-4)
[2022-09-08 03:36] LABS: NT Pro Brain Natriuretic Pep. 197 pg/mL (0-450)
[2022-09-08 03:43] LABS: Erythrocyte Sedimentation Rate 19 mm/hr (0-20)
[2022-09-08 03:44] LABS: Procalcitonin 0.214 ng/mL (0.0-2.0)
[2022-09-08 03:54] LABS: Magnesium 1.6 mg/dl (1.6-2.3)
[2022-09-08 03:57] LABS: T4 (Thyroxine) 14.2 ug/dl (5.53-11.0)
[2022-09-08 04:07] LABS: Troponin I 0.08 ng/ml (0.00-0.034)
[2022-09-08 04:11] LABS: Thyroid Stimulating Hormone 0.57 uIU/mL (0.465-4.68)
[2022-09-08 04:20] LABS: Acetone, Serum (Rapid) None Detected (None Detect)
[2022-09-08 04:27] LABS: Hemoglobin A1C 6.3 % (4.0-6.0)
--- NOTE | 2022-09-08 04:48 | PC.NURSE ---
Pt reports the pressure he felt after chest CTA is now gone. States with he oxygen and sitting up the pain is improving.
--- NOTE | 2022-09-08 04:53 | PC.NURSE ---
in room talking with patient at this time.
--- NOTE | 2022-09-08 05:09 | PC.NURSE ---
Spoke with NAJMA Banks at [facility]. Advised he would call back.
--- NOTE | 2022-09-08 05:10 | HMH.EDSOB ---
Discharge Plan Disposition Patient Disposition: Xfer Short-Term Hosp Chief Complaint: Shortness of Breath/Dyspnea Prescriptions Prescriptions: No Action Zyrtec 10 mg capsule 10 mg PO DAILY PRN (Reason: ALLERGIES) clopidogrel [Plavix] 75 mg tablet 75 mg PO DAILY losartan 25 mg tablet 25 mg PO DAILY colestipol 1 gram tablet 1 g PO BID loperamide 2 mg tablet 2 mg PO BID PRN (Reason: BOWELS) eplerenone 25 mg tablet 25 mg PO DAILY allopurinol 300 MG tablet 300 mg PO DAILY fluticasone propionate [Flonase Allergy Relief] 9.9 ML spray,suspension 2 spray intranasal DAILY pravastatin [Pravachol] 40 MG tablet 40 mg PO DAILY isosorbide mononitrate 60 MG tablet extended release 24 hr 120 mg PO DAILY omeprazole 20 MG capsule,delayed release(DR/EC) 20 mg PO DAILY levothyroxine 112 MCG tablet 112 mcg PO DAILY potassium chloride 10 MEQ tablet,ER particles/crystals 20 meq PO TID duloxetine 30 MG capsule,delayed release(DR/EC) 30 mg PO DAILY metoprolol succinate 100 MG tablet extended release 24 hr 100 mg PO DAILY aspirin 81 MG tablet,chewable 81 mg PO DAILY ezetimibe 10 MG tablet 10 mg PO DAILY albuterol sulfate 8.5 GM HFA aerosol inhaler 2 puff inhalation Q4HP PRN (Reason: Wheezing) Qty: 1 0RF Referrals Follow up/Referrals: Javier Fletcher MD [Primary Care Provider] - See instructions Clinical Impressions Clinical Impression: Acute exacerbation of chronic obstructive airways disease, CAP (community acquired pneumonia), Respiratory failure with hypoxia, Severe sepsis with acute organ dysfunction, Septic shock, Obesity, PTSD (post-traumatic stress disorder), Hypothyroidism, Elevated troponin Discharge ED Provider: Val (ED)Mitchell Resp/SOB HPI General Chief Complaint: Shortness of Breath/Dyspnea Stated Complaint: SOA Time Seen by Provider: 09/08/22 04:00 Mode of Arrival: EMS Source of Information: Patient, EMS and Medical Record Limitations: No Limitations Description of Symptoms (Recalled from ER Triage Doc. by RN): Pt c/o of R sided chest pain with SOA and dyspnea that woke him up about 0230. He does report a productive cough and sinus drainage, worse at night. Denies fever. He does note chills and aches. Denies any n/v/d. History of Present Illness pt who uses cpap at home but no o2 with hx of cough over the last few days and had rt sided chest pain and sob this am - no fever - MD Complaint: shortness of breath, cough and chest pain Onset (ago): day(s) Severity: moderate Consistency/Duration: intermittent Associated symptoms: denies other symptoms Treatment prior to arrival: oxygen Related Data Home oxygen amount: none Home Medications Medication Instructions Recorded Confirmed allopurinol 300 mg tablet 300 mg PO DAILY gout 08/03/17 09/08/22 fluticasone propionate 50 2 spray intranasal DAILY Allergy 08/03/17 09/08/22 mcg/actuation nasal symptoms spray,suspension (Flonase Allergy Relief) isosorbide mononitrate 60 mg 120 mg PO DAILY Hypertension 08/03/17 09/08/22 tablet,extended release 24 hr levothyroxine 112 mcg tablet 112 mcg PO DAILY hypothyroid 08/03/17 09/08/22 omeprazole 20 mg capsule,delayed 20 mg PO DAILY Reflux/Acid reflux 08/03/17 09/08/22 release pravastatin 40 mg tablet 40 mg PO DAILY Cholesterol 08/03/17 09/08/22 (Pravachol) duloxetine 30 mg capsule,delayed 30 mg PO DAILY Depression 12/29/19 09/08/22 release potassium chloride 10 mEq 20 meq PO TID Diet supplement 12/29/19 09/08/22 tablet,extended release(part/cryst) aspirin 81 mg chewable tablet 81 mg PO DAILY CAD 12/18/20 09/08/22 ezetimibe 10 mg tablet 10 mg PO DAILY . 12/18/20 09/08/22 metoprolol succinate 100 mg 100 mg PO DAILY htn 12/18/20 09/08/22 tablet,extended release 24 hr cetirizine 10 mg capsule (Zyrtec) 10 mg PO DAILY PRN ALLERGIES 01/27/22 09/08/22 clopidogrel 75 mg tablet (Plavix) 75 mg PO DAILY Bl
--- NOTE | 2022-09-08 05:39 | PC.NURSE ---
Dr Neal and I in room s/w pt regarding [facility]. Awaiting for ICU provider to call. Pt calling his son in law now to update him
--- NOTE | 2022-09-08 05:42 | PC.NURSE ---
Dr. Neal s/w [place] director translation, Dr. Mercedes
--- NOTE | 2022-09-08 05:45 | PC.NURSE ---
Dr Mercedes has accepted the pt to [facility]. Pt updated on this.
--- NOTE | 2022-09-08 06:06 | PC.NURSE ---
Darren with [facility] reports bed assignment is ICU bed 642. Call report to [phone].
--- NOTE | 2022-09-08 06:28 | PC.NURSE ---
[facility] in route for transport, gave report on pt to Sabas Herrera EMT-P & Cindy Guerra EMT-P.
--- NOTE | 2022-09-08 06:40 | PC.NURSE ---
pt loaded on EMS strecher and report completed to [facility] bed 642,s/w Alvaro RN
[2022-09-08 07:13] LABS: Reflex Lactic Add Lactic Reflex
== END 2022-09-08 06:45 | disposition short-term general hospital (02) ==
PROVIDERS: Emergency Provider Emergency Medicine; PCP Family Medicine
DX: A41.9 Sepsis, unspecified organism (principal); R65.21 Severe sepsis with septic shock; J96.91 Respiratory failure, unspecified with hypoxia; J44.1 Chronic obstructive pulmonary disease with (acute) exacerbation; J18.9 Pneumonia, unspecified organism; I10 Essential (primary) hypertension; I25.10 Atherosclerotic heart disease of native coronary artery without angina pectoris; K21.9 Gastro-esophageal reflux disease without esophagitis; M10.9 Gout, unspecified; E78.5 Hyperlipidemia, unspecified; E03.9 Hypothyroidism, unspecified; Z87.891 Personal history of nicotine dependence
CPT/HCPCS: 71045; 71275; 80053; 82009; 82803; 83036; 83605; 83735; 83880; 84145; 84436; 84443; 84484; 85025; 85651; 86140; 87040; 87635; 87636; 93005; C9803; J1956; Q9967; U0003; U0005